=== PATIENT | female | born 1950 | race Hispanic/Latino ===

== ENCOUNTER 2018-03-11 22:14 | Emergency (ER) | payer OTHER ==
--- OUTSIDE RECORDS SUMMARY | 2018-03-11 22:17 | XMS REPORT | Clinical Summary ---
:1950 Author Organization [facility] Address [address] [place] [address] Care Team Providers Name Role Phone Neo Shah MD Primary Care Provider Allergies Active Allergy Reactions Severity Noted Date Comments Influenza A (H1n1) Vac Other (See Comments) 04/02/2017 Fever, flu like 09 (Pf) symptoms Medications Medication Sig Dispensed Refills Start End Date Status Date pantoprazole Take 40 mg by 0 Active (PROTONIX) 40 MG EC mouth daily. tablet atorvastatin Take 20 mg by 0 Active (LIPITOR) 20 MG mouth every tablet evening. Default OP ins calcitriol Take 0.25 mcg by 0 Active (ROCALTROL) 0.25 MCG mouth 3 (three) capsule times a week. Daily on Mon., Wed., Fri. metoprolol tartrate Take 25 mg by 0 Active (LOPRESSOR) 25 mg mouth 2 (two) tablet times a day. cholecalciferol, Take 2,000 Units 0 Active vitamin D3, (VITAMIN by mouth daily. D3) 2,000 unit capsule capsule amLODIPine (NORVASC) Take 10 mg by 0 Active 10 mg tablet mouth daily. In the evening traMADol (ULTRAM) 50 Take 50 mg by 0 Active mg tablet mouth every 6 (six) hours as needed for moderate pain. LEVOCETIRIZINE Take by mouth. 0 Active DIHYDROCHLORIDE (LEVOCETIRIZINE ORAL) amLODIPine (NORVASC) Take 10 mg by 0 04/02/19 Discontinued 10 mg tablet mouth daily. 18 ciprofloxacin Take 500 mg by 0 04/02/19 Discontinued (CIPRO) 500 MG mouth every 12 18 tablet (twelve) hours. For 7 days sennosides-docusate Take 1 tablet by 20 tablet 0 04/10/19 Discontinued sodium (SENOKOT-S) mouth 2 (two) 8 18 8.6-50 mg per tablet times a day as needed for constipation for up to 10 days. dextromethorphan-gua Take 5 mL by 236 mL 1 04/19/19 ifenesin mouth every 4 8 18 (ROBITUSSIN-DM) (four) hours as 10-100 mg/5 mL needed for cough liquid for up to 10 days. amoxicillin-pot Take 1 tablet 10 tablet 0 04/14/19 clavulanate (500 mg total) by 8 18 (AUGMENTIN) 500-125 mouth 2 (two) mg per tablet times a day for 5 days. levoFLOXacin Take 1 tablet 7 tablet 0 04/25/19 Discontinued (LEVAQUIN) 500 MG (500 mg total) by 8 18 tablet mouth daily for 7 days. azelastine (ASTELIN) 1 spray into each 30 mL 3 05/21/19 Discontinued 137 mcg (0.1 %) nostril 2 (two) 8 18 nasal spray times a day for 30 days. Use in each nostril as directed levocetirizine Take 1 tablet (5 30 tablet 3 05/26/19 (XYZAL) 5 MG tablet mg total) by 8 18 mouth every evening for 30 days. levoFLOXacin Take 1 tablet 5 tablet 0 04/30/19 (LEVAQUIN) 750 MG (750 mg total) by 8 18 tablet mouth daily for 5 days. ertapenem 1 g in Infuse 1 g into a 0 06/14/19 sodium chloride 0.9 venous catheter 8 18 % MBP 50 mL IVPB daily for 18 days. Active Problems Problem Noted Date Fever 06/21/2017 Pyelonephritis 05/20/2017 Pneumonia due to infectious organism 04/17/2017 Acquired hydronephrosis 04/02/2017 Hydronephrosis 04/02/2017 Chest pain 11/03/2016 Encounters Date Type Specialty Care Team Description 06/25/2017 Anesthesia Event General Surgery Isabel Mustafa FNP 06/25/2017 Surgery General Surgery Cristofer Velez CYSTOSCOPY, LEFT Bryan III, MD URETEROSCOPY, RETROGRADE PYELOGRAM, BALLOON DILATION OF URETHRAL STRICTURE 06/21/2017 Hospital Encounter General Internal Schneider, Fever, unspecified fever cause (Primary Dx); - Medicine MD Roger Infected central venous catheter, initial encounter; 06/26/2017 Nahid Burt Acquired hydronephrosis due to obstruction of ureteropelvic junction (UPJ); MD Abel Acquired hydronephrosis; Hydronephrosis, unspecified hydronephrosis type 06/21/2017 Pre-Admit Testing Pre-Admission Cristofer Velez Pre-op testing ( Primary Appointment Testing Bryan MENA MD Dx) 05/22/2017 Anesthesia Event General Surgery Felisha Leblanc MD 05/22/2017 Surgery General Surgery Cristofer Velez CYSTO WITH LEFT Bryan MENA MD URETERAL STENT PLACEMENT 05/20/2017 Hospital Encounter General Internal Jinny, Pyelonephritis ( Primary - Medicine Jesus Lee, Dx) 05/25/2017 Edwige Sutherland MD 04/25/2017 Hospital Encounter Radiology Kranthi Kang MD 04/25/2017 Office Visit Pulmonology Kranthi Kang Fever, unspecified fever cause (Primary Dx); MD Jose Pneumonia due to infectious organism, unspecified laterality, unspecified part of lung- resolved 04/17/2017 Office Visit Pulmonology Kranthi Kang Pneumonia due to MD Jose infectious organism, unspecified laterality, unspecified part of lung- resolved (Primary Dx) 04/13/2017 Hospital Encounter Radiology Kranthi Kang Pneumonia due to MD Jose organism 04/12/2017 Orders Only Pulmonology Malka Lerma, Pneumonia due to MA organism (Primary Dx) 04/10/2017 Office Visit General Surgery Brice Payne, Hernia, hiatal ( Primary Dx); Paraesophageal hernia; Gastroesophageal reflux disease, esophagitis presence not specified 04/02/2017 Anesthesia Event General Surgery Hanna Pa, NELI 04/02/2017 Surgery General Surgery Cristofer Velez ROBOTIC ASSISTED LEFT Bryan MENA MD PYELOPLASTY, PLACEMENT OF URETERAL STENT - VERBAL 04/02/2017 Hospital Encounter General Internal Cristofer Velez Acquired hydronephrosis - Medicine Bryan MENA MD 04/09/2017 03/22/2017 Hospital Encounter Radiology Cristofer Velez HydronephrosisBryan III, MD unspecified hydronephrosis type 03/20/2017 Transcribe Orders Access Cristofer Velez HydronephrosisBryan III, MD unspecified hydronephrosis type (Primary Dx) after 03/10/2017 Family History Medical History Relation Name Comments Diabetes Father No Known Problems Mother Relation Name Status Comments Father Mother Social History Tobacco Use Types Packs/Day Years Used Date Never Smoker Smokeless Tobacco: Never Used Alcohol Use Drinks/Week oz/Week Comments No Sex Assigned at Date Recorded Not on file Job Start Date Occupation Industry Not on file Not on file Not on file Travel History Travel Start Travel End No recent travel history available. Last Filed Vital Signs Vital Sign Reading Time Taken Blood Pressure 115/65 06/26/2017 12:36 PM CDT Pulse 68 06/26/2017 12:36 PM CDT Temperature 36.4 C (97.6 F) 06/26/2017 12:36 PM CDT Respiratory Rate 16 06/26/2017 12:36 PM CDT Oxygen Saturation 98% 06/26/2017 12:36 PM CDT Inhaled Oxygen Concentration - - Weight 62 kg (136 lb 11.2 oz) 06/26/2017 3:00 AM CDT Height 154.9 cm (5' 1") 06/21/2017 3:37 PM CDT Body Mass Index 25.83 06/26/2017 3:00 AM CDT Plan of Treatment Health Maintenance Due Date Last Done Comments BREAST CANCER SCREENING 02/07/1998 COLON CANCER SCREENING 02/07/1998 SHINGLES VACCINES (1 of 2) 02/07/1998 PNEUMOCOCCAL POLYSACCHARIDE VACCINE AGE 65 AND OVER 02/07/2013 PNEUMOCOCCAL-13 02/07/2013 INFLUENZA VACCINE 10/17/2017 Implants Implanted Type Area Staff Midwife Device Shelf Model / Identifier Expiration Serial / Date Lot Particle Hmstc Absrbl Yoanna 5gm Mph - [id number] Surgical N/A: [employer] [id number] / Implanted: Qty: 1 on 04/02/2017 by Cristofer Velez III, MD Implants; Abdomen, / Expanders; Lower [id number] Extenders; Quadrant Surgical Wires Stent Uretl Unvrsa Reprcsd 6fr 26cm Hydrphlc [facility] - [id number] Urological Left : N/A [facility] 12/23/2019 [id number] / Implanted: 04/02/2017 (Quantity not on file) Implants or / Sets [id number] Stent Uretl Universa 6fr 24cm Hydrphlc With Gw - [id number] Urological Left: [facility] 04/05/2020 [id number] / Implanted: 05/22/2017 (Quantity not on file) Implants or Ureter, / Sets [place] [id number] Catheter Uretl 4.8fr 70cm Cn-Tp Rtrgd Pyelogram - [id number] Urological N/A: N/A [facility] 03/20/2020 [id number] / Implanted: Implants or / Explanted: 06/25/2017 (Quantity not on file) Sets [id number] Stent Uretl Universa 6fr 24cm Hydrphlc With Gw - [id number] Urological N/A: N /A [facility] 05/04/2020 [id number] / Implanted: Qty: 1 on 06/25/2017 by Cristofer Velez III, MD Implants or / Sets [id number] Explanted Type Area Staff Midwife Device Shelf Model / Identifier Expiration Serial / Date Lot Samantha Ql 2530 Disposable Inflation Device Inflation N/A: [employer] LARYR 10/17/2019 [id number] / Implanted: Device N/A - ENT (FORMERLY / Explanted: 06/25/2017 (Quantity not on file) [facility]) [id number] Stent Uretl Universa 6fr 24cm Hydrphlc With Gw - [id number] Urological Left: [facility] 12/17/2019 [id number] / Implanted: Implants or N/A / Explanted: Qty: 1 on 04/02/2017 Sets [id number] Procedures Procedure Name Priority Date/Time Associated Diagnosis Comments ZZESTIMATED GFR Routine 06/26/2017 4:40 Results for this AM CDT procedure are in the results section. COMPREHENSIVE Routine 06/26/2017 4:40 Results for this METABOLIC PANEL AM CDT procedure are in the results section. HC COMPLETE BLD COUNT Routine 06/26/2017 4:40 Results for this W/AUTO DIFF AM CDT procedure are in the results section. VANCOMYCIN LEVEL, Timed 06/25/2017 7:25 Results for this TROUGH PM CDT procedure are in the results section. OR FL > 1 HOUR Routine 06/25/2017 3:00 Results for this PM CDT procedure are in the results section. URINE CULTURE Timed 06/25/2017 12:58 Results for this PM CDT procedure are in the results section. GRAM STAIN Timed 06/25/2017 12:58 Results for this PM CDT procedure are in the results section. ANAEROBIC CULTURE Timed 06/25/2017 12:58 Acquired Results for this PM CDT hydronephrosis due to procedure are in obstruction of the results ureteropelvic section. junction (UPJ) ZZESTIMATED GFR Routine 06/25/2017 5:40 Results for this AM CDT procedure are in the results section. HC COMPLETE BLD COUNT Routine 06/25/2017 5:40 Results for this W/AUTO DIFF AM CDT procedure are in the results section. COMPREHENSIVE Routine 06/25/2017 5:40 Results for this METABOLIC PANEL AM CDT procedure are in the results section. MAGNESIUM LEVEL Routine 06/25/2017 5:40 Results for this AM CDT procedure are in the results section. PROTHROMBIN TIME WITH Routine 06/25/2017 5:40 Results for this INR AM CDT procedure are in the results section. ZZESTIMATED GFR Routine 06/24/2017 5:35 Results for this AM CDT procedure are in the results section. BASIC METABOLIC PANEL Routine 06/24/2017 5:35 Results for this AM CDT procedure are in the results section. HC COMPLETE BLD COUNT Routine 06/24/2017 5:35 Results for this W/AUTO DIFF AM CDT procedure are in the results section. VANCOMYCIN LEVEL, Timed 06/23/2017 5:45 Results for this TROUGH PM CDT procedure are in the results section. ZZESTIMATED GFR Routine 06/23/2017 5:20 Results for this AM CDT procedure are in the results section. COMPREHENSIVE Routine 06/23/2017 5:20 Results for this METABOLIC PANEL AM CDT procedure are in the results section. HC COMPLETE BLD COUNT Routine 06/23/2017 5:20 Results for this W/AUTO DIFF AM CDT procedure are in the results section. ZZESTIMATED GFR Timed 06/22/2017 5:05 Results for this AM CDT procedure are in the results section. COMPREHENSIVE Timed 06/22/2017 5:05 Results for this METABOLIC PANEL AM CDT procedure are in the results section. HC COMPLETE BLD COUNT Timed 06/22/2017 5:05 Results for this W/AUTO DIFF AM CDT procedure are in the results section. TROPONIN Timed 06/22/2017 5:05 Results for this AM CDT procedure are in the results section. TROPONIN Timed 06/22/2017 12:05 Results for this AM CDT procedure are in the results section. LACTIC ACID LEVEL, Timed 06/22/2017 12:05 Results for this SEPSIS - NOW AND AM CDT procedure are in REPEAT 2X EVERY 3 the results HOURS section. LACTIC ACID LEVEL, Timed 06/21/2017 9:00 Results for this SEPSIS - NOW AND PM CDT procedure are in REPEAT 2X EVERY 3 the results HOURS section. IR TUNNELED CENTRAL STAT 06/21/2017 5:50 Results for this LINE REMOVAL PM CDT procedure are in the results section. ECG 12-LEAD STAT 06/21/2017 5:34 Results for this PM CDT procedure are in the results section. BLOOD CULTURE, AEROBIC Routine 06/21/2017 5:08 Results for this & ANAEROBIC PM CDT procedure are in the results section. ZZESTIMATED GFR STAT 06/21/2017 4:58 Results for this PM CDT procedure are in the results section. COMPREHENSIVE STAT 06/21/2017 4:58 Results for this METABOLIC PANEL PM CDT procedure are in the results section. LACTIC ACID LEVEL, STAT 06/21/2017 4:58 Results for this SEPSIS - NOW AND PM CDT procedure are in REPEAT 2X EVERY 3 the results HOURS section. B NATRIURETIC PEPTIDE STAT 06/21/2017 4:58 Results for this PM CDT procedure are in the results section. LIPASE LEVEL STAT 06/21/2017 4:58 Results for this PM CDT procedure are in the results section. TROPONIN STAT 06/21/2017 4:58 Results for this PM CDT procedure are in the results section. CREATINE KINASE, TOTAL STAT 06/21/2017 4:58 Results for this (CPK) PM CDT procedure are in the results section. PARTIAL THROMBOPLASTIN Routine 06/21/2017 4:58 Results for this TIME (PTT) PM CDT procedure are in the results section. PROTHROMBIN TIME WITH Routine 06/21/2017 4:58 Results for this INR PM CDT procedure are in the results section. HC COMPLETE BLD COUNT Routine 06/21/2017 4:58 Results for this W/AUTO DIFF PM CDT procedure are in the results section. BLOOD CULTURE, AEROBIC Routine 06/21/2017 4:58 Results for this & ANAEROBIC PM CDT procedure are in the results section. XR CHEST 1 VW PORTABLE STAT 06/21/2017 4:51 Results for this PM CDT procedure are in the results section. ECG ED PRELIMINARY Routine 06/21/2017 4:01 Results for this INTERPRETATION PM CDT procedure are in the results section. ZZESTIMATED GFR Routine 06/21/2017 12:51 Results for this PM CDT procedure are in the results section. BASIC METABOLIC PANEL Routine 06/21/2017 12:51 Pre-op testing Results for this PM CDT procedure are in the results section. HC COMPLETE BLD COUNT Routine 06/21/2017 12:51 Pre-op testing Results for this W/AUTO DIFF PM CDT procedure are in the results section. URINALYSIS SCREEN AND Routine 06/21/2017 12:50 Pre-op testing Results for this MICROSCOPY, WITH PM CDT procedure are in REFLEX TO CULTURE the results section. GRAM STAIN Routine 06/21/2017 12:50 Results for this PM CDT procedure are in the results section. URINE CULTURE Routine 06/21/2017 12:50 Results for this PM CDT procedure are in the results section. MANUAL DIFFERENTIAL Routine 05/25/2017 5:15 Results for this AM INTEGRATION ARCHITECT procedure are in the results section. ZZESTIMATED GFR Routine 05/25/2017 5:15 Results for this AM INTEGRATION ARCHITECT procedure are in the results section. BASIC METABOLIC PANEL Routine 05/25/2017 5:15 Results for this AM INTEGRATION ARCHITECT procedure are in the results section. CBC WITH PLATELET AND Routine 05/25/2017 5:15 Results for this DIFFERENTIAL AM INTEGRATION ARCHITECT procedure are in the results section. US GUIDED VASCULAR Routine 05/24/2017 3:15 Results for this ACCESS PM INTEGRATION ARCHITECT procedure are in the results section. IR TUNNELED CENTRAL Routine 05/24/2017 3:15 Results for this LINE PLACEMENT PM INTEGRATION ARCHITECT procedure are in the results section. ZZESTIMATED GFR Routine 05/24/2017 12:00 Results for this PM INTEGRATION ARCHITECT procedure are in the results section. PHOSPHORUS LEVEL Routine 05/24/2017 12:00 Results for this PM INTEGRATION ARCHITECT procedure are in the results section. MAGNESIUM LEVEL Routine 05/24/2017 12:00 Results for this PM INTEGRATION ARCHITECT procedure are in the results section. HC COMPLETE BLD COUNT Routine 05/24/2017 12:00 Results for this W/AUTO DIFF PM INTEGRATION ARCHITECT procedure are in the results section. PROTHROMBIN TIME WITH Routine 05/24/2017 12:00 Results for this INR PM INTEGRATION ARCHITECT procedure are in the results section. COMPREHENSIVE Routine 05/24/2017 12:00 Results for this METABOLIC PANEL PM INTEGRATION ARCHITECT procedure are in the results section. BLOOD CULTURE, AEROBIC Routine 05/23/2017 1:15 Results for this & ANAEROBIC PM INTEGRATION ARCHITECT procedure are in the results section. BLOOD CULTURE, AEROBIC Routine 05/23/2017 1:00 Results for this & ANAEROBIC PM INTEGRATION ARCHITECT procedure are in the results section. MANUAL DIFFERENTIAL Routine 05/23/2017 5:02 Results for this AM INTEGRATION ARCHITECT procedure are in the results section. ZZESTIMATED GFR Routine 05/23/2017 5:02 Results for this AM INTEGRATION ARCHITECT procedure are in the results section. COMPREHENSIVE Routine 05/23/2017 5:02 Results for this METABOLIC PANEL AM INTEGRATION ARCHITECT procedure are in the results section. CBC WITH PLATELET AND Routine 05/23/2017 5:02 Results for this DIFFERENTIAL AM INTEGRATION ARCHITECT procedure are in the results section. CLOSTRIDIUM DIFFICILE Routine 05/22/2017 9:20 Results for this TOXIN PM INTEGRATION ARCHITECT procedure are in the results section. D-DIMER Routine 05/22/2017 2:28 Results for this PM INTEGRATION ARCHITECT procedure are in the results section. SOLUBLE FIBRIN MONOMER Routine 05/22/2017 2:28 Results for this PM INTEGRATION ARCHITECT procedure are in the results section. LDH Routine 05/22/2017 2:28 Results for this PM INTEGRATION ARCHITECT procedure are in the results section. PARTIAL THROMBOPLASTIN Routine 05/22/2017 2:28 Results for this TIME (PTT) PM INTEGRATION ARCHITECT procedure are in the results section. FIBRINOGEN Routine 05/22/2017 2:28 Results for this PM INTEGRATION ARCHITECT procedure are in the results section. OR FL > 1 HOUR Routine 05/22/2017 12:00 Results for this PM INTEGRATION ARCHITECT procedure are in the results section. [place] AN ELECTIVE Routine 05/22/2017 11:41 SUPRAGLOTTIC AIRWAY AM INTEGRATION ARCHITECT Procedure Note - Lorenza Pierce - 05/22/2017 11:41 AM INTEGRATION ARCHITECT Airway Date/Time: 05/22/2017 11:41 AM Performed by: LORENZA PIERCE Authorized by: FELISHA LEBLANC Location: OR Urgency: Elective Anesthesiologist: FELISHA LEBLANC Resident/BOMB TECHNICIAN/AA: LORENZA PIERCE Preoxygenated with 100% O2: Yes C-spine Precautions Maintained Throughout: Yes Mask Ventilation: Easy mask Final Airway Type: Supraglottic airway Final LMA: Classic LMA Size: 4 Number of Attempts at Approach: 1 MANUAL DIFFERENTIAL Routine 05/22/2017 4:05 Results for this AM INTEGRATION ARCHITECT procedure are in the results section. PROTHROMBIN TIME WITH Routine 05/22/2017 4:05 Results for this INR AM INTEGRATION ARCHITECT procedure are in the results section. ZZESTIMATED GFR Routine 05/22/2017 4:05 Results for this AM INTEGRATION ARCHITECT procedure are in the results section. BASIC METABOLIC PANEL Routine 05/22/2017 4:05 Results for this AM INTEGRATION ARCHITECT procedure are in the results section. CBC WITH PLATELET AND Routine 05/22/2017 4:05 Results for this DIFFERENTIAL AM INTEGRATION ARCHITECT procedure are in the results section. ECG PRE/POST OP Routine 05/22/2017 12:33 Results for this AM INTEGRATION ARCHITECT procedure are in the results section. LACTIC ACID LEVEL Routine 05/21/2017 3:31 Results for this PM INTEGRATION ARCHITECT procedure are in the results section. LACTIC ACID LEVEL, Timed 05/21/2017 2:10 Results for this SEPSIS - NOW AND REPEAT AM INTEGRATION ARCHITECT procedure are in 2X EVERY 3 HOURS the results section. MANUAL DIFFERENTIAL Routine 05/21/2017 1:10 Results for this AM INTEGRATION ARCHITECT procedure are in the results section. ZZESTIMATED GFR Routine 05/21/2017 1:10 Results for this AM INTEGRATION ARCHITECT procedure are in the results section. COMPREHENSIVE METABOLIC Routine 05/21/2017 1:10 Results for this PANEL AM INTEGRATION ARCHITECT procedure are in the results section. CBC WITH PLATELET AND Routine 05/21/2017 1:10 Results for this DIFFERENTIAL AM INTEGRATION ARCHITECT procedure are in the results section. LACTIC ACID LEVEL, Timed 05/20/2017 11:35 Results for this SEPSIS - NOW AND REPEAT PM INTEGRATION ARCHITECT procedure are in 2X EVERY 3 HOURS the results section. LACTIC ACID LEVEL, Timed 05/20/2017 8:40 Results for this SEPSIS - NOW AND REPEAT PM INTEGRATION ARCHITECT procedure are in 2X EVERY [address] results section[address] ABDOMEN PELVIS WO STAT 05/20/2017 7:14 Results for this CONTRAST PM INTEGRATION ARCHITECT procedure are in the results section. PROTHROMBIN TIME WITH STAT 05/20/2017 6:10 Results for this INR PM INTEGRATION ARCHITECT procedure are in the results section. PARTIAL THROMBOPLASTIN STAT 05/20/2017 6:10 Results for this TIME (PTT) PM INTEGRATION ARCHITECT procedure are in the results section. URINALYSIS SCREEN AND STAT 05/20/2017 6:10 Results for this MICROSCOPY, WITH REFLEX PM INTEGRATION ARCHITECT procedure are in TO CULTURE the results section. GRAM STAIN STAT 05/20/2017 6:10 Results for this PM INTEGRATION ARCHITECT procedure are in the results section. URINE CULTURE STAT 05/20/2017 6:10 Results for this PM INTEGRATION ARCHITECT procedure are in the results section. XR CHEST 1 VW PORTABLE STAT 05/20/2017 5:44 Results for this PM INTEGRATION ARCHITECT procedure are in the results section. MANUAL DIFFERENTIAL STAT 05/20/2017 5:40 Results for this PM INTEGRATION ARCHITECT procedure are in the results section. ZZESTIMATED GFR STAT 05/20/2017 5:40 Results for this PM INTEGRATION ARCHITECT procedure are in the results section. LIPASE LEVEL STAT 05/20/2017 5:40 Results for this PM INTEGRATION ARCHITECT procedure are in the results section. LACTIC ACID LEVEL, STAT 05/20/2017 5:40 Results for this SEPSIS - NOW AND REPEAT PM INTEGRATION ARCHITECT procedure are in 2X EVERY 3 HOURS the results section. COMPREHENSIVE METABOLIC STAT 05/20/2017 5:40 Results for this PANEL PM INTEGRATION ARCHITECT procedure are in the results section. CBC WITH PLATELET AND STAT 05/20/2017 5:40 Results for this DIFFERENTIAL PM INTEGRATION ARCHITECT procedure are in the results section. BLOOD CULTURE, AEROBIC Routine 05/20/2017 5:40 Results for this & ANAEROBIC PM INTEGRATION ARCHITECT procedure are in the results section. RESPIRATORY PATHOGEN Routine 05/20/2017 5:32 Results for this PANEL PM INTEGRATION ARCHITECT procedure are in the results section. INFLUENZA ANTIGEN Routine 05/20/2017 5:32 Results for this PM INTEGRATION ARCHITECT procedure are in the results section. BLOOD CULTURE, AEROBIC Routine 05/20/2017 5:32 Results for this & ANAEROBIC PM INTEGRATION ARCHITECT procedure are in the results section. ECG ED PRELIMINARY Routine 05/20/2017 5:15 Results for this INTERPRETATION PM INTEGRATION ARCHITECT procedure are in the results section. [place] CRITICAL CARE, E/M Routine 05/20/2017 5:15 Results for this 30-74 MINUTES PM INTEGRATION ARCHITECT procedure are in the results section. ECG 12-LEAD STAT 05/20/2017 5:02 Results for this PM INTEGRATION ARCHITECT procedure are in the results section. XR CHEST 2 VW Routine 04/25/2017 6:31 Pneumonia due to Results for this PM INTEGRATION ARCHITECT infectious procedure are in organism, the results unspecified section. laterality, unspecified part of lung- resolved POCT INFLUENZA A/B Routine 04/25/2017 5:16 Fever, unspecified Results for this PM INTEGRATION ARCHITECT fever cause procedure are in the results section. XR CHEST 2 VW Routine 04/13/2017 9:39 Pneumonia due to Results for this AM INTEGRATION ARCHITECT organism procedure are in the results section. ZZESTIMATED GFR Routine 04/09/2017 4:01 Results for this AM INTEGRATION ARCHITECT procedure are in the results section. BASIC METABOLIC PANEL Routine 04/09/2017 4:01 Results for this AM INTEGRATION ARCHITECT procedure are in the results section. HC COMPLETE BLD COUNT Routine 04/09/2017 4:01 Results for this W/AUTO DIFF AM INTEGRATION ARCHITECT procedure are in the results section. VANCOMYCIN LEVEL, Timed 04/08/2017 2:00 Results for this TROUGH PM INTEGRATION ARCHITECT procedure are in the results section. ZZESTIMATED GFR Routine 04/08/2017 5:00 Results for this AM INTEGRATION ARCHITECT procedure are in the results section. BASIC METABOLIC PANEL Routine 04/08/2017 5:00 Results for this AM INTEGRATION ARCHITECT procedure are in the results section. HC COMPLETE BLD COUNT Routine 04/08/2017 5:00 Results for this W/AUTO DIFF AM INTEGRATION ARCHITECT procedure are in the results section. XR CHEST 1 VW PORTABLE Routine 04/08/2017 4:44 Results for this AM INTEGRATION ARCHITECT procedure are in the results section. GRAM STAIN Routine 04/07/2017 9:00 Results for this PM INTEGRATION ARCHITECT procedure are in the results section. SPUTUM CULTURE Routine 04/07/2017 9:00 Results for this PM INTEGRATION ARCHITECT procedure are in the results section. ZZESTIMATED GFR Routine 04/07/2017 3:30 Results for this AM INTEGRATION ARCHITECT procedure are in the results section. BASIC METABOLIC PANEL Routine 04/07/2017 3:30 Results for this AM INTEGRATION ARCHITECT procedure are in the results section. HC COMPLETE BLD COUNT Routine 04/07/2017 3:30 Results for this W/AUTO DIFF AM INTEGRATION ARCHITECT procedure are in the results section. ZZESTIMATED GFR Routine 04/06/2017 12:30 Results for this PM INTEGRATION ARCHITECT procedure are in the results section. BASIC METABOLIC PANEL Routine 04/06/2017 12:30 Results for this PM INTEGRATION ARCHITECT procedure are in the results section. HC COMPLETE BLD COUNT Routine 04/06/2017 12:30 Results for this W/AUTO DIFF PM INTEGRATION ARCHITECT procedure are in the results section. NM LUNG VENTILATION Routine 04/06/2017 9:43 Results for this PERFUSION AM INTEGRATION ARCHITECT procedure are in the results section. CT CHEST WO CONTRAST Routine 04/06/2017 7:20 Results for this AM INTEGRATION ARCHITECT procedure are in the results section. XR CHEST 1 VW PORTABLE Routine 04/04/2017 9:58 Results for this PM INTEGRATION ARCHITECT procedure are in the results section. SURGICAL PATHOLOGY Routine 04/02/2017 11:21 Results for this REQUEST AM INTEGRATION ARCHITECT procedure are in the results section. [place] AN ELECTIVE Routine 04/02/2017 8:47 ENDOTRACHEAL AIRWAY AM INTEGRATION ARCHITECT Procedure Note - Theodore Santizo MD - 04/02/2017 8:47 AM INTEGRATION ARCHITECT Airway Date/Time: 04/02/2017 8:27 AM Performed by: THEODORE SANTIZO Authorized by: THEODORE SANTIZO Location: OR Urgency: Elective Difficult Airway: No Anesthesiologist: THEODORE SANTIZO Performed by: anesthesiologist Preoxygenated with 100% O2: Yes C-spine Precautions Maintained Throughout: Yes Mask Ventilation: Easy mask Final Airway Type: Endotracheal airway Final Endotracheal Airway: ETT Cuffed: Yes Technique Used: Direct laryngoscopy Insertion Site: Oral Blade Type: Monica Laryngoscope Blade/Videolaryngoscope Blade Size: 3 ETT Size (mm): 7.0 Cuff at minimum occlusion pressure: Yes Measured from: Lips ETT to Lips (cm): 21 Placement Verified by: CO2 detection and direct visualization Laryngoscopic view: Grade I - full view of glottis Rapid Sequence Induction (RSI): No Modified RSI: No Number of Attempts at Approach: 1 URINALYSIS SCREEN Timed 04/02/2017 8:35 Acquired Results for this AND MICROSCOPY, WITH AM INTEGRATION ARCHITECT hydronephrosis procedure are in REFLEX TO CULTURE the results section. GRAM STAIN Timed 04/02/2017 8:35 Results for this AM INTEGRATION ARCHITECT procedure are in the results section. URINE CULTURE Timed 04/02/2017 8:35 Results for this AM INTEGRATION ARCHITECT procedure are in the results section. POC GLUCOSE Routine 04/02/2017 7:07 Results for this AM INTEGRATION ARCHITECT procedure are in the results section. ZZESTIMATED GFR STAT 04/02/2017 6:42 Results for this AM INTEGRATION ARCHITECT procedure are in the results section. TYPE AND SCREEN STAT 04/02/2017 6:42 Results for this AM INTEGRATION ARCHITECT procedure are in the results section. BASIC METABOLIC STAT 04/02/2017 6:42 Results for this PANEL AM INTEGRATION ARCHITECT procedure are in the results section. HC COMPLETE BLD STAT 04/02/2017 6:42 Results for this COUNT W/AUTO DIFF AM INTEGRATION ARCHITECT procedure are in the results section. CT ABDOMEN PELVIS WO Routine 03/22/2017 4:25 Hydronephrosis, Results for this CONTRAST PM INTEGRATION ARCHITECT unspecified procedure are in hydronephrosis type the results section. after 03/10/2017 Results Estimated GFR (06/26/2017 4:40 AM CDT)Only the most recent of18 resultswithin the time period is included. GFR Non Af Amer 28 (A) mL/min/1.73 m2 [facility] DEPARTMENT OF PATHOLOGY AND GENOMIC MEDICINE GFR Af Amer 34 (A) mL/min/1.73 m2 [facility] DEPARTMENT OF Comment: PATHOLOGY AND GENOMIC Chronic kidney disease: <60 mL/min/1.73m2 MEDICINE Kidney failure: <15 mL/min/1.73m2 The estimated GFR is calculated from the IDMS-traceable Modification of Diet in Renal Disease Equation. The accuracy of the calculation is poor when the creatinine is normal. Calculated values >90 mL/min/1.73m2 are not reported. This equation has not been validated in children (<18 years), women, the elderly (>70 years), or ethnic groups other than Caucasians and Americans. Specimen Plasma specimen Performing Organization Address City/State/Zipcode Phone Number [facility] DEPARTMENT OF PATHOLOGY [address] [place] [address] AND [employer] MEDICINE CBC with platelet and differential (06/26/2017 4:40 AM CDT)Only the most recent of18 resultswithin the time period is included. WBC 5.9 4.5 - 11.0 k/uL [facility] DEPARTMENT OF PATHOLOGY AND GENOMIC MEDICINE RBC 3.99 (L) 4.20 - 5.50 m/uL [facility] DEPARTMENT OF PATHOLOGY AND GENOMIC MEDICINE HGB 10.7 (L) 12.0 - 16.0 g/dL [facility] DEPARTMENT OF PATHOLOGY AND GENOMIC MEDICINE HCT 34.1 (L) 37.0 - 47.0 % [facility] DEPARTMENT OF PATHOLOGY AND GENOMIC MEDICINE MCV 85.5 82.0 - 100.0 fL [facility] DEPARTMENT OF PATHOLOGY AND GENOMIC MEDICINE MCH 26.8 (L) 27.0 - 34.0 pg [facility] DEPARTMENT OF PATHOLOGY AND GENOMIC MEDICINE MCHC 31.4 31.0 - 37.0 g/dL [facility] DEPARTMENT OF PATHOLOGY AND GENOMIC MEDICINE RDW - SD 48.5 37.0 - 55.0 fL [facility] DEPARTMENT OF PATHOLOGY AND GENOMIC MEDICINE MPV 10.1 6.9 - 11.0 fL [facility] DEPARTMENT OF PATHOLOGY AND GENOMIC MEDICINE Platelet count 181 150 - 400 K/uL [facility] DEPARTMENT OF PATHOLOGY AND GENOMIC MEDICINE Nucleated RBC 0.00 /100 WBC [facility] DEPARTMENT OF PATHOLOGY AND GENOMIC MEDICINE Neutrophils 35.3 (L) 39.0 - 69.0 % [facility] DEPARTMENT OF PATHOLOGY AND GENOMIC MEDICINE Lymphocytes 45.1 (H) 25.0 - 45.0 % [facility] DEPARTMENT OF PATHOLOGY AND GENOMIC MEDICINE Monocytes 13.3 (H) 0.0 - 10.0 % [facility] DEPARTMENT OF PATHOLOGY AND GENOMIC MEDICINE Eosinophils 5.1 (H) 0.0 - 5.0 % [facility] DEPARTMENT OF PATHOLOGY AND GENOMIC MEDICINE Basophils 0.9 0.0 - 1.0 % [facility] DEPARTMENT OF PATHOLOGY AND GENOMIC MEDICINE Immature granulocytes 0.3 0.0 - 1.0 % [facility] DEPARTMENT OF PATHOLOGY AND GENOMIC MEDICINE Specimen Blood Performing Organization Address City/State/Zipcode Phone Number [facility] DEPARTMENT OF PATHOLOGY [address] [place] [address] AND [employer] MEDICINE Comprehensive metabolic panel (06/26/2017 4:40 AM CDT)Only the most recent of9 resultswithin the time period is included. Sodium 140 135 - 148 mEq/L [facility] DEPARTMENT OF PATHOLOGY AND GENOMIC MEDICINE Potassium 4.9 3.5 - 5.0 mEq/L [facility] DEPARTMENT OF PATHOLOGY AND GENOMIC MEDICINE Chloride 104 98 - 112 mEq/L [facility] DEPARTMENT OF PATHOLOGY AND GENOMIC MEDICINE CO2 25 24 - 31 mEq/L [facility] DEPARTMENT OF PATHOLOGY AND GENOMIC MEDICINE Anion gap 11 7 - 15 mEq/L [facility] DEPARTMENT OF Comment: PATHOLOGY AND GENOMIC Starting from June , anion gap calculation MEDICINE no longer incorporates potassium. Please note the change. BUN 24 (H) 8 - 23 mg/dL [facility] DEPARTMENT OF PATHOLOGY AND GENOMIC MEDICINE Creatinine 1.8 (H) 0.5 - 0.9 mg/dL [facility] DEPARTMENT OF PATHOLOGY AND GENOMIC MEDICINE Glucose 92 65 - 99 mg/dL [facility] DEPARTMENT OF PATHOLOGY AND GENOMIC MEDICINE Calcium 8.9 8.8 - 10.2 mg/dL [facility] DEPARTMENT OF PATHOLOGY AND GENOMIC MEDICINE Protein 6.8 6.3 - 8.3 g/dL [facility] DEPARTMENT OF PATHOLOGY AND GENOMIC MEDICINE Albumin 3.5 3.5 - 5.0 g/dL [facility] DEPARTMENT OF PATHOLOGY AND GENOMIC MEDICINE A/G ratio 1.1 0.7 - 3.8 [facility] DEPARTMENT OF PATHOLOGY AND GENOMIC MEDICINE Alkaline phosphatase 100 35 - 104 U/L [facility] DEPARTMENT OF PATHOLOGY AND GENOMIC MEDICINE AST 41 (H) 10 - 35 U/L [facility] DEPARTMENT OF PATHOLOGY AND GENOMIC MEDICINE ALT 27 5 - 50 U/L [facility] DEPARTMENT OF PATHOLOGY AND GENOMIC MEDICINE Total bilirubin <0.2 0.2 - 1.2 mg/dL [facility] DEPARTMENT OF PATHOLOGY AND GENOMIC MEDICINE Specimen Plasma specimen Performing Organization Address City/[facility]/Zipcode Phone Number [facility] DEPARTMENT OF PATHOLOGY [phone] [place] [address] AND [employer] [facility] Vancomycin level, trough (06/25/2017 7:25 PM CDT)Only the most recent of3 resultswithin the time period is included. Vancomycin, trough 16.5 10.0 - 20.0 ug/mL [facility] DEPARTMENT OF Comment: PATHOLOGY AND GENOMIC Therapeutic Ranges: MEDICINE Peak30.0 - 40.0 ug/mL Eckmjr26.0 - 20.0 ug/mL Specimen Blood Performing Organization Address [facility] Servicescode Phone Number [facility] DEPARTMENT OF PATHOLOGY [id number] [place] [phone] AND [employer] MEDICINE [place] > I Hour (06/25/2017 3:00 PM CDT)Only the most recent of2 resultswithin the time period is included. Narrative Performed At EXAMINATION:[place] 1 HOUR [facility] CLINICAL HISTORY: IMPRESSION: Fluoroscopy was provided. No radiologist present.Please see procedure report for discussion of procedure, findings and fluoroscopic time. [facility]-[id number] Procedure Note Interface, Radiology Results Incoming - 06/25/2017 3:32 PM CDT EXAMINATION: [place] 1 HOUR CLINICAL HISTORY: IMPRESSION: Fluoroscopy was provided. No radiologist present. Please see procedure report for discussion of procedure, findings and fluoroscopic time. [facility]-[id number] Performing Organization Address City/[facility]/Zipcode Phone Number [facility] [address] [place] [address] Gram stain (06/25/2017 12:58 PM CDT)Only the most recent of5 resultswithin the time period is included. Gram stain isolate Many WBC's [facility] DEPARTMENT OF PATHOLOGY No organisms seen AND [employer] [facility] Comment: Specimen Information Specimen Source: Urine Specimen Site: Kidney, left Specimen Urine - Kidney, left Performing Organization Address City/State/Zipcode Phone Number [facility] DEPARTMENT OF PATHOLOGY AND [address] [place] [address] [facility] Urine culture (06/25/2017 12:58 PM CDT)Only the most recent of4 resultswithin the time period is included. Urine culture isolate No growth after 2 days. [facility] DEPARTMENT OF Comment: PATHOLOGY AND GENOMIC Specimen Information MEDICINE Specimen Source: Urine Specimen Site: Kidney, left Specimen Urine - Kidney, left Performing Organization Address City/State/[facility] Servicescode Phone Number [facility] DEPARTMENT OF PATHOLOGY AND [address] [place] [phone] [facility] Anaerobic culture (06/25/2017 12:58 PM CDT) Anaerobic culture No anaerobic organisms isolated. (A) [facility] DEPARTMENT OF isolate Comment: PATHOLOGY AND GENOMIC Specimen Information MEDICINE Specimen Source: Urine Specimen Site: Kidney, left Anaerobic culture Kimberly glabrata (A) [facility] DEPARTMENT OF isolate PATHOLOGY AND GENOMIC MEDICINE Specimen Urine - Kidney, left Organism Antibiotic Method Susceptibility Kimberly glabrata Micafungin BP 0.016 mcg/mL: Susceptible Kimberly glabrata Amphotericin B BP 2 mcg/mL: Resistant Kimberly glabrata Posiconazole BP 2 mcg/mL Kimberly glabrata Itraconazole BP 1.0 mcg/mL: Resistant Kimberly glabrata Fluconazole BP 16 mcg/mL: Susceptible Performing Organization Address City/[facility] Servicescode Phone Number [facility] DEPARTMENT OF PATHOLOGY AND [address] [place] [phone] [facility] Prothrombin time with INR (06/25/2017 5:40 AM CDT)Only the most recent of5 resultswithin the time period is included. Prothrombin time 13.2 12.0 - 15.0 sec [facility] DEPARTMENT OF PATHOLOGY AND GENOMIC MEDICINE INR 1.0 [facility] DEPARTMENT OF Comment: PATHOLOGY AND GENOMIC The International Normalized Ratio (INR) is a therapeutic MEDICINE monitoring tool for patients who are stable on oral anticoagulant therapy. An INR of 2.0-3.0 is suggested for deep vein thrombosis/pulmonary embolism. Specimen Blood Performing Organization Address City/State/Zipcode Phone Number [facility] DEPARTMENT OF PATHOLOGY [address] [place] [address] AND GENOMIC [facility] Magnesium level (06/25/2017 5:40 AM CDT)Only the most recent of2 resultswithin the time period is included. Magnesium 2.0 1.6 - 2.4 mg/dL [facility] DEPARTMENT OF PATHOLOGY AND GENOMIC MEDICINE Specimen Plasma specimen Performing Organization Address City/State/Zipcode Phone Number [facility] DEPARTMENT OF PATHOLOGY [address] [place] [address]. [place] [address] AND [employer] [facility] Basic metabolic panel (06/24/2017 5:35 AM CDT)Only the most recent of9 resultswithin the time period is included. Sodium 140 135 - 148 mEq/L [facility] DEPARTMENT OF PATHOLOGY AND GENOMIC [facility] Potassium 4.5 3.5 - 5.0 mEq/L [facility] DEPARTMENT OF PATHOLOGY AND GENOMIC MEDICINE Chloride 104 98 - 112 mEq/L [facility] DEPARTMENT OF PATHOLOGY AND GENOMIC MEDICINE CO2 23 (L) 24 - 31 mEq/L [facility] DEPARTMENT OF PATHOLOGY AND [employer] [facility] Anion gap 13 7 - 15 mEq/L [facility] DEPARTMENT OF Comment: PATHOLOGY AND GENOMIC Starting from June , anion gap calculation MEDICINE no longer incorporates potassium. Please note the change. BUN 25 (H) 8 - 23 mg/dL [facility] DEPARTMENT OF PATHOLOGY AND GENOMIC MEDICINE Creatinine 1.8 (H) 0.5 - 0.9 mg/dL [facility] DEPARTMENT OF PATHOLOGY AND GENOMIC MEDICINE Glucose 94 65 - 99 mg/dL [facility] DEPARTMENT OF PATHOLOGY AND GENOMIC MEDICINE Calcium 9.2 8.8 - 10.2 mg/dL [facility] DEPARTMENT OF PATHOLOGY AND [employer] [facility] Specimen Plasma specimen Performing Organization Address City/[facility] Servicescode Phone Number [facility] DEPARTMENT OF PATHOLOGY [address] [place] [address]. [place] [address] AND [employer] [facility] Troponin (06/22/2017 5:05 AM CDT)Only the most recent of3 resultswithin the time period is included. Troponin <0.30 0.00 - 0.30 ng/mL [facility] DEPARTMENT OF PATHOLOGY Comment: AND [employer] MEDICINE 0.11 - 1.49 ng/mlMay indicate increased risk of acute coronary syndrome. >=1.5 ng/mlConsistent with acute myocardial infarction. The diagnostic value of a single normal or non-diagnostic result is questionable.Serial samples at 2-6 hour intervals are required to rule out acute myocardial injury. Specimen Plasma specimen Performing Organization Address City/State/Zipcode Phone Number [facility] DEPARTMENT OF PATHOLOGY [address] [place] [address]. [place] [address] AND [facility] Lactic acid level, SEPSIS - Now and repeat 2x every 3 hours (06/22/2017 12:05 AM CDT)Only the most recent of7 resultswithin the time period is included. Lactic acid 1.3 0.5 - 2.2 mmol/L [facility] DEPARTMENT OF PATHOLOGY AND GENOMIC MEDICINE Specimen Plasma specimen Performing Organization Address City/State/Zipcode Phone Number [facility] DEPARTMENT OF PATHOLOGY [address] [facility] [place] [address] AND GENOMIC MEDICINE IR Tunneled Central Line Removal (06/21/2017 5:50 PM CDT) Narrative Performed At PERFORMING RADIOLOGIST: LEVAR Glover MD ASSISTANTS: None ANESTHESIA TYPE: 1% buffered lidocaine used for local anesthetic. PRE PROCEDURE DIAGNOSIS: History of right internal jugular approach tunneled central venous catheter. Long-term antibiotics. Now status post antibiotic treatment. Catheter no longer needed. POST PROCEDURE DIAGNOSIS: Status post right chest tunneled central venous catheter removal. PROCEDURE: Right chest tunneled central venous catheter removal. TECHNIQUE: Written informed consent was obtained prior to the procedure. The procedure was performed at the bedside in the PACU. The right chest and tunneled central venous catheter were sterilely prepared and draped in the routine manner. The suture securing the tunneled central venous catheter were then cut. Using gentle traction, the cuff of the indwelling tunneled central venous catheter was freed, and this catheter was removed. Hemostasis was achieved with manual compression. The patient tolerated the procedure well. RADIATION DOSE: None. COMPLICATIONS None . SPECIMENS REMOVED: As described above. ESTIMATED BLOOD LOSS: Less then 1 mL BLOOD PRODUCTS ADMINISTERED: None. GRAFTS/IMPLANTS: None. IMPRESSION: Successful removal of the right chest tunneled central venous catheter. [facility]-[id number] Procedure Note Interface, Radiology Results Incoming - 06/21/2017 6:06 PM CDT PERFORMING RADIOLOGIST: Esther Glover MD ASSISTANTS: None ANESTHESIA TYPE: 1% buffered lidocaine used for local anesthetic. PRE PROCEDURE DIAGNOSIS: History of right internal jugular approach tunneled central venous catheter. Long-term antibiotics. Now status post antibiotic treatment. Catheter no longer needed. POST PROCEDURE DIAGNOSIS: Status post right chest tunneled central venous catheter removal. PROCEDURE: Right chest tunneled central venous catheter removal. TECHNIQUE: Written informed consent was obtained prior to the procedure. The procedure was performed at the bedside in the PACU. The right chest and tunneled central venous catheter were sterilely prepared and draped in the routine manner. The suture securing the tunneled central venous catheter were then cut. Using gentle traction, the cuff of the indwelling tunneled central venous catheter was freed, and this catheter was removed. Hemostasis was achieved with manual compression. The patient tolerated the procedure well. RADIATION DOSE: None. COMPLICATIONS None . SPECIMENS REMOVED: As described above. ESTIMATED BLOOD LOSS: Less then 1 mL BLOOD PRODUCTS ADMINISTERED: None. GRAFTS/IMPLANTS: None. IMPRESSION: Successful removal of the right chest tunneled central venous catheter. [facility]-[id number] Performing Organization Address [facility] Servicescoks Phone Number [facility] [address] [place] [address] ECG 12 lead (06/21/2017 5:34 PM CDT)Only the most recent of2 resultswithin the time period is included. Ventricular rate 88 [facility] MUSE Atrial rate 88 [facility] MUSE [place] interval 148 [facility] MUSE QRSD interval 84 [facility] MUSE QT interval 374 [facility] MUSE QTC interval 452 [facility] MUSE P axis 1 39 [facility] MUSE QRS axis 1 -19 [facility] MUSE T wave axis 24 [facility] MUSE EKG impression Normal sinus rhythm-No previous ECGs [facility] MUSE available- Performing Organization Address [facility] Phone Number [facility] MUSE [address] [place] [address] Blood culture, aerobic & anaerobic (06/21/2017 5:08 PM CDT)Only the most recent of6 resultswithin the time period is included. Blood culture isolate No growth after 5 days of incubation. [facility] DEPARTMENT OF Comment: PATHOLOGY AND GENOMIC Specimen Information MEDICINE Specimen Source: Blood Specimen Site: Line, central, right Specimen Blood - Line, central, right Performing Organization Address [facility] Phone Number [facility] DEPARTMENT OF PATHOLOGY AND [address] [place] [phone] GENOMIC MEDICINE Partial thromboplastin time, activated (06/21/2017 4:58 PM CDT)Only the most recent of3 resultswithin the time period is included. PTT 29.2 23.0 - 36.0 sec [facility] DEPARTMENT OF Comment: PATHOLOGY AND GENOMIC PTT therapeutic range for unfractionated heparin is MEDICINE 61.0-112.0 seconds which corresponds to Anti-Xa 0.3-0.7 U/ml. Specimen Blood Performing Organization Address City/[facility]/Zipcode Phone Number [facility] DEPARTMENT OF PATHOLOGY [address] [place] [address]. [place] [address] AND [facility] B natriuretic peptide (06/21/2017 4:58 PM CDT) BNP 45 0 - 100 pg/mL [facility] DEPARTMENT OF PATHOLOGY AND [facility] Specimen Blood Performing Organization Address City/[facility] Servicescode Phone Number [facility] DEPARTMENT OF PATHOLOGY [address] [place] [address]. [place] [address] AND [facility] Lipase level (06/21/2017 4:58 PM CDT)Only the most recent of2 resultswithin the time period is included. Lipase 53 13 - 60 U/L [facility] DEPARTMENT OF PATHOLOGY AND [facility] Specimen Plasma specimen Performing Organization Address [facility] Servicescode Phone Number [facility] DEPARTMENT OF PATHOLOGY [address] [place] [address]. [place] [address] AND [facility] Creatine kinase, total (CPK) (06/21/2017 4:58 PM CDT) Creatine kinase 71 26 - 192 U/L [facility] DEPARTMENT OF PATHOLOGY AND GENOMIC MEDICINE Specimen Plasma specimen Performing Organization Address City/[facility] Services[facility] Phone Number [facility] DEPARTMENT OF PATHOLOGY [address] [place] [address]. [place] [address] AND [facility] XR Chest 1 Vw Portable (06/21/2017 4:51 PM CDT)Only the most recent of4 resultswithin the time period is included. Narrative Performed At Examination: XR CHEST 1 VW PORTABLE [facility] Clinical history: fever Comparison: May 20 Impression: 1. Central line tip is in the SVC. There is no visible pneumothorax. 2. Appearance of the chest is otherwise stable. The cardiac silhouette is mildly enlarged. Vasculature is borderline. Large gas containing hiatal hernia is unchanged. 3. There is no confluent infiltrate or effusion. 4. There is no acute osseous pathology. [facility]-[id number] Procedure Note Hm Interface, Radiology Results Incoming - 06/21/2017 4:57 PM CDT Examination: XR CHEST 1 VW PORTABLE Clinical history: fever Comparison: May 20 Impression: 1. Central line tip is in the SVC. There is no visible pneumothorax. 2. Appearance of the chest is otherwise stable. The cardiac silhouette is mildly enlarged. Vasculature is borderline. Large gas containing hiatal hernia is unchanged. 3. There is no confluent infiltrate or effusion. 4. There is no acute osseous pathology. [facility]-[id number] Performing Organization Address City/State/Zipcode Phone Number LEV[facility] NOLASCO [address] [place] [address] ECG ED Preliminary Interpretation - NOT AN ORDER (06/21/2017 4:01 PM CDT)Only the most recent of2 resultswithin the time period is included. Narrative Performed At Roger Schneider MD 06/21/2017 11:00 PM ECG ED Preliminary Interpretation - Not an Order Performed by: ROGER SCHNEIDER Authorized by: ROGER SCHNEIDER ECG reviewed by ED Physician in the absence of a elevator technician: yes Previous ECG: Previous ECG:Unavailable Interpretation: Interpretation: normal Rate: ECG rate:88 ECG rate assessment: normal Rhythm: Rhythm: sinus rhythm Ectopy: Ectopy: none QRS: QRS axis:Normal QRS intervals:Normal Conduction: Conduction: normal ST segments: ST segments:Non-specific T waves: T waves: non-specific Comments: Sinus rhythm, nonspecific ST-T changes, acute ischemic changes Urinalysis screen and microscopy, with reflex to culture (06/21/2017 12:50 PM CDT)Only the most recent of3 resultswithin the time period is included. Specimen site Clean catch [facility] DEPARTMENT OF PATHOLOGY AND GENOMIC MEDICINE Color, UA Yellow [facility] DEPARTMENT OF PATHOLOGY AND GENOMIC MEDICINE Appearance, UA Cloudy [facility] DEPARTMENT OF PATHOLOGY AND GENOMIC MEDICINE Specific gravity, UA 1.011 1.001 - 1.030 [facility] DEPARTMENT OF PATHOLOGY AND GENOMIC MEDICINE pH, UA 5.0 5.0 - 9.0 [facility] DEPARTMENT OF PATHOLOGY AND GENOMIC MEDICINE Protein, UA 2+ (A) Negative [facility] DEPARTMENT OF PATHOLOGY AND GENOMIC MEDICINE Glucose, UA Negative Negative [facility] DEPARTMENT OF PATHOLOGY AND GENOMIC MEDICINE Ketones, UA Negative Negative [facility] DEPARTMENT OF PATHOLOGY AND GENOMIC MEDICINE Bilirubin, UA Negative Negative [facility] DEPARTMENT OF PATHOLOGY AND GENOMIC MEDICINE Blood, UA Small (A) Negative [facility] DEPARTMENT OF PATHOLOGY AND GENOMIC MEDICINE Nitrite, UA Negative Negative [facility] DEPARTMENT OF PATHOLOGY AND GENOMIC MEDICINE Urobilinogen, UA <2.0 <2.0 E.U./dL [facility] DEPARTMENT OF PATHOLOGY AND GENOMIC MEDICINE Leukocyte esterase, UA Large (A) Negative [facility] DEPARTMENT OF PATHOLOGY AND GENOMIC MEDICINE Epithelial cells, UA 1 /HPF [facility] DEPARTMENT OF PATHOLOGY AND GENOMIC MEDICINE Round epithelial cells, UA 2 0 - 5 /HPF [facility] DEPARTMENT OF PATHOLOGY AND GENOMIC MEDICINE WBC, UA >200 (H) 0 - 4 /HPF [facility] DEPARTMENT OF PATHOLOGY AND GENOMIC MEDICINE RBC, UA 32 (H) 0 - 5 /HPF [facility] DEPARTMENT OF PATHOLOGY AND GENOMIC MEDICINE Bacteria, UA Few None seen [facility] DEPARTMENT OF PATHOLOGY AND GENOMIC MEDICINE WBC clumps, UA Many (A) [facility] DEPARTMENT OF PATHOLOGY AND GENOMIC MEDICINE Yeast, UA Few (A) [facility] DEPARTMENT OF PATHOLOGY AND GENOMIC MEDICINE Yeast with pseudohyphae, UA None seen [facility] DEPARTMENT OF PATHOLOGY AND GENOMIC MEDICINE Specimen Urine Performing Organization Address City/[facility] Phone Number [facility] DEPARTMENT OF PATHOLOGY [address] [place] [address] AND [facility] Manual differential (05/25/2017 5:15 AM INTEGRATION ARCHITECT)Only the most recent of5 resultswithin the time period is included. Manual differential PERFORMED [facility] DEPARTMENT OF PATHOLOGY AND GENOMIC MEDICINE Neutrophils 46.0 39.0 - 69.0 % [facility] DEPARTMENT OF PATHOLOGY AND GENOMIC MEDICINE Lymphocytes 40.0 25.0 - 45.0 % [facility] DEPARTMENT OF PATHOLOGY AND GENOMIC MEDICINE Monocytes 6.0 0.0 - 10.0 % [facility] DEPARTMENT OF PATHOLOGY AND GENOMIC MEDICINE Eosinophils 6.0 (H) 0.0 - 5.0 % [facility] DEPARTMENT OF PATHOLOGY AND GENOMIC MEDICINE Basophils 2.0 (H) 0.0 - 1.0 % [facility] DEPARTMENT OF PATHOLOGY AND GENOMIC MEDICINE Platelet slide review Zac adequate [facility] DEPARTMENT OF PATHOLOGY AND GENOMIC MEDICINE Performing Organization Address City/[facility] Services[facility] Phone Number [facility] DEPARTMENT OF PATHOLOGY [address] [place] [address] AND [facility] IR Tunneled Central Line Placement (05/24/2017 3:15 PM INTEGRATION ARCHITECT) Narrative Performed At EXAMINATION:IR TUNNELED CENTRAL LINE PLACEMENT, US GUIDED VASCULAR [facility] ACCESS CLINICAL HISTORY:PYELONEPHRITISCOMPLICATED (DMIMMUNODIFFHX OF STONESPRIOR SURGERYNOT RESPONDING TO ABX) COMPARISON:None. PROCEDURE: Tunneled central venous catheter placement Performing Radiologist: Jonathan Park MD Assistants: None Pre Procedure Diagnosis: PYELONEPHRITISCOMPLICATED (DMIMMUNODIFFHX OF STONESPRIOR SURGERYNOT RESPONDING TO ABX) Post Procedure Diagnosis: PYELONEPHRITISCOMPLICATED (DMIMMUNODIFFHX OF STONESPRIOR SURGERYNOT RESPONDING TO ABX) Indication: IV access for fluids/medication/blood draws Complications: No immediate post procedure complications. IMPRESSION: 1.Technically successful fluoroscopic insertion of a duallumen power injectable tunneled central venous catheter. 2.The right internal jugular vein is patent and compressible on preprocedure ultrasound. PLAN: The tunneled central venous catheter is ready for immediate use. PROCEDURE SUMMARY: 1.Venous access with ultrasound guidance 2.Tunneled central venous catheter placement under fluoroscopic guidance PROCEDURE DETAILS: Pre-procedure: Comparison studies: None Written and informed consent for the procedure and monitored conscious sedation was obtained from the patient. Prophylactic antibiotics: None Preparation: The right anterior chest wall and neck was prepared and draped using all elements of maximal sterile barrier technique including sterile gloves, sterile gown, catheter, mask, large sterile sheet, sterile ultrasound probe cover, hand hygiene and cutaneous antisepsis using chlorhexidine. Anesthesia/Sedation: Level of anesthesia: Moderate Sedation Medications used: Fentanyl and Versed, 1% lidocaine and lidocaine with epinephrine Anesthesia administration: Pulse oximetry, heart rate, and blood pressure were continuously monitored by a radiology nurse and the performing provider. Duration of intraservice [id number] anesthesia/sedation: 12 minutes Access: Local anesthesia was administered. The vein was evaluated with preprocedure ultrasound and noted to be patent. Real-time ultrasound was used to visualize needle entry into the vessel and a permanent image was stored.A 0.035 inch J-wire was advanced into the inferior vena cava and an image was archived. Vein accessed: Right internal jugular vein Access technique: 5 Bangladeshi micropuncture set Venography: Vein catheterized: N/A Indication for venography: Not performed Findings: N/A Central venous catheter placement: An incision was made over the chest wall, and the catheter was tunneled subcutaneously to the venous access site and trimmed to the appropriate length. The catheter was advanced via a peel-away sheath into the vein under fluoroscopic guidance. The catheter tip location was fluoroscopically verified and an image was archived. Catheter Brand/Type: Powerline (Bard) Catheter size: 6 Bangladeshi Catheter Tip Location: Atriocaval junction Catheter flush: None Closure: The neck access site was closed and the catheter was secured to the subcutaneous tissues. A sterile bandage was applied. Hemostasis was achieved with manual compression. Access site closure technique: Dermabond Catheter securement technique: 2-0 silk Contrast: Contrast agent: None Contrast volume: N/A Radiation dose: Total Fluoroscopic dose: Reference air Kerma 27.7 mGy. Additional details: Additional description of procedure: N/A Additional findings: N/A Equipment details: N/A Estimated blood loss: Less than 10 cc [id number] Procedure Note Hm Interface, Radiology Results Incoming - 05/24/2017 3:54 PM INTEGRATION ARCHITECT EXAMINATION: IR TUNNELED CENTRAL LINE PLACEMENT, US GUIDED VASCULAR ACCESS CLINICAL HISTORY: PYELONEPHRITIS COMPLICATED (DM IMMUNODIFF HX OF STONES PRIOR SURGERY NOT RESPONDING TO ABX) COMPARISON: None. PROCEDURE: Tunneled central venous catheter placement Performing Radiologist: Jonathan Park MD Assistants: None Pre Procedure Diagnosis: PYELONEPHRITIS COMPLICATED (DM IMMUNODIFF HX OF STONES PRIOR SURGERY NOT RESPONDING TO ABX) Post Procedure Diagnosis: PYELONEPHRITIS COMPLICATED (DM IMMUNODIFF HX OF STONES PRIOR SURGERY NOT RESPONDING TO ABX) Indication: IV access for fluids/medication/blood draws Complications: No immediate post procedure complications. IMPRESSION: 1. Technically successful fluoroscopic insertion of a dual lumen power injectable tunneled central venous catheter. 2. The right internal jugular vein is patent and compressible on preprocedure ultrasound. PLAN: The tunneled central venous catheter is ready for immediate use. PROCEDURE SUMMARY: 1. Venous access with ultrasound guidance 2. Tunneled central venous catheter placement under fluoroscopic guidance PROCEDURE DETAILS: Pre-procedure: Comparison studies: None Written and informed consent for the procedure and monitored conscious sedation was obtained from the patient. Prophylactic antibiotics: None Preparation: The right anterior chest wall and neck was prepared and draped using all elements of maximal sterile barrier technique including sterile gloves , sterile gown, catheter, mask, large sterile sheet, sterile ultrasound probe cover, hand hygiene and cutaneous antisepsis using chlorhexidine. Anesthesia/Sedation: Level of anesthesia: Moderate Sedation Medications used: Fentanyl and Versed, 1% lidocaine and lidocaine with epinephrine Anesthesia administration: Pulse oximetry, heart rate, and blood pressure were continuously monitored by a radiology nurse and the performing provider. Duration of intraservice [id number] anesthesia/sedation: 12 minutes Access: Local anesthesia was administered. The vein was evaluated with preprocedure ultrasound and noted to be patent. Real-time ultrasound was used to visualize needle entry into the vessel and a permanent image was stored. A 0.035 inch J-wire was advanced into the inferior vena cava and an image was archived. Vein accessed: Right internal jugular vein Access technique: 5 Bangladeshi micropuncture set Venography: Vein catheterized: N/A Indication for venography: Not performed Findings: N/A Central venous catheter placement: An incision was made over the chest wall, and the catheter was tunneled subcutaneously to the venous access site and trimmed to the appropriate length. The catheter was advanced via a peel-away sheath into the vein under fluoroscopic guidance. The catheter tip location was fluoroscopically verified and an image was archived. Catheter Brand/Type: Powerline (IdentiGEN) Catheter size: 6 Bangladeshi Catheter Tip Location: Atriocaval junction Catheter flush: None Closure: The neck access site was closed and the catheter was secured to the subcutaneous tissues. A sterile bandage was applied. Hemostasis was achieved with manual compression. Access site closure technique: Dermabond Catheter securement technique: 2-0 silk Contrast: Contrast agent: None Contrast volume: N/A Radiation dose: Total Fluoroscopic dose: Reference air Kerma 27.7 mGy. Additional details: Additional description of procedure: N/A Additional findings: N/A Equipment details: N/A Estimated blood loss: Less than 10 cc [facility]-[id number] [facility]-[id number] Performing Organization Address City/State/Zipcode Phone Number [facility] [address] [place] [address] [place] Guided Vascular Access (05/24/2017 3:15 PM INTEGRATION ARCHITECT) Narrative Performed At EXAMINATION:IR TUNNELED CENTRAL LINE PLACEMENT, US GUIDED VASCULAR RADIANT ACCESS CLINICAL HISTORY:PYELONEPHRITISCOMPLICATED (DMIMMUNODIFFHX OF STONESPRIOR SURGERYNOT RESPONDING TO ABX) COMPARISON:None. PROCEDURE: Tunneled central venous catheter placement Performing Radiologist: Jonathan Park MD Assistants: None Pre Procedure Diagnosis: PYELONEPHRITISCOMPLICATED (DMIMMUNODIFFHX OF STONESPRIOR SURGERYNOT RESPONDING TO ABX) Post Procedure Diagnosis: PYELONEPHRITISCOMPLICATED (DMIMMUNODIFFHX OF STONESPRIOR SURGERYNOT RESPONDING TO ABX) Indication: IV access for fluids/medication/blood draws Complications: No immediate post procedure complications. IMPRESSION: 1.Technically successful fluoroscopic insertion of a duallumen power injectable tunneled central venous catheter. 2.The right internal jugular vein is patent and compressible on preprocedure ultrasound. PLAN: The tunneled central venous catheter is ready for immediate use. PROCEDURE SUMMARY: 1.Venous access with ultrasound guidance 2.Tunneled central venous catheter placement under fluoroscopic guidance PROCEDURE DETAILS: Pre-procedure: Comparison studies: None Written and informed consent for the procedure and monitored conscious sedation was obtained from the patient. Prophylactic antibiotics: None Preparation: The right anterior chest wall and neck was prepared and draped using all elements of maximal sterile barrier technique including sterile gloves, sterile gown, catheter, mask, large sterile sheet, sterile ultrasound probe cover, hand hygiene and cutaneous antisepsis using chlorhexidine. Anesthesia/Sedation: Level of anesthesia: Moderate Sedation Medications used: Fentanyl and Versed, 1% lidocaine and lidocaine with epinephrine Anesthesia administration: Pulse oximetry, heart rate, and blood pressure were continuously monitored by a radiology nurse and the performing provider. Duration of intraservice [id number] anesthesia/sedation: 12 minutes Access: Local anesthesia was administered. The vein was evaluated with preprocedure ultrasound and noted to be patent. Real-time ultrasound was used to visualize needle entry into the vessel and a permanent image was stored.A 0.035 inch J-wire was advanced into the inferior vena cava and an image was archived. Vein accessed: Right internal jugular vein Access technique: 5 Bangladeshi micropuncture set Venography: Vein catheterized: N/A Indication for venography: Not performed Findings: N/A Central venous catheter placement: An incision was made over the chest wall, and the catheter was tunneled subcutaneously to the venous access site and trimmed to the appropriate length. The catheter was advanced via a peel-away sheath into the vein under fluoroscopic guidance. The catheter tip location was fluoroscopically verified and an image was archived. Catheter Brand/Type: Powerline (IdentiGEN) Catheter size: 6 Bangladeshi Catheter Tip Location: Atriocaval junction Catheter flush: None Closure: The neck access site was closed and the catheter was secured to the subcutaneous tissues. A sterile bandage was applied. Hemostasis was achieved with manual compression. Access site closure technique: Dermabond Catheter securement technique: 2-0 silk Contrast: Contrast agent: None Contrast volume: N/A Radiation dose: Total Fluoroscopic dose: Reference air Kerma 27.7 mGy. Additional details: Additional description of procedure: N/A Additional findings: N/A Equipment details: N/A Estimated blood loss: Less than 10 cc [id number] Procedure Note Hm Interface, Radiology Results Incoming - 05/24/2017 3:54 PM INTEGRATION ARCHITECT EXAMINATION: IR TUNNELED CENTRAL LINE PLACEMENT, US GUIDED VASCULAR ACCESS CLINICAL HISTORY: PYELONEPHRITIS COMPLICATED (DM IMMUNODIFF HX OF STONES PRIOR SURGERY NOT RESPONDING TO ABX) COMPARISON: None. PROCEDURE: Tunneled central venous catheter placement Performing Radiologist: Jonathan Park MD Assistants: None Pre Procedure Diagnosis: PYELONEPHRITIS COMPLICATED (DM IMMUNODIFF HX OF STONES PRIOR SURGERY NOT RESPONDING TO ABX) Post Procedure Diagnosis: PYELONEPHRITIS COMPLICATED (DM IMMUNODIFF HX OF STONES PRIOR SURGERY NOT RESPONDING TO ABX) Indication: IV access for fluids/medication/blood draws Complications: No immediate post procedure complications. IMPRESSION: 1. Technically successful fluoroscopic insertion of a dual lumen power injectable tunneled central venous catheter. 2. The right internal jugular vein is patent and compressible on preprocedure ultrasound. PLAN: The tunneled central venous catheter is ready for immediate use. PROCEDURE SUMMARY: 1. Venous access with ultrasound guidance 2. Tunneled central venous catheter placement under fluoroscopic guidance PROCEDURE DETAILS: Pre-procedure: Comparison studies: None Written and informed consent for the procedure and monitored conscious sedation was obtained from the patient. Prophylactic antibiotics: None Preparation: The right anterior chest wall and neck was prepared and draped using all elements of maximal sterile barrier technique including sterile gloves , sterile gown, catheter, mask, large sterile sheet, sterile ultrasound probe cover, hand hygiene and cutaneous antisepsis using chlorhexidine. Anesthesia/Sedation: Level of anesthesia: Moderate Sedation Medications used: Fentanyl and Versed, 1% lidocaine and lidocaine with epinephrine Anesthesia administration: Pulse oximetry, heart rate, and blood pressure were continuously monitored by a radiology nurse and the performing provider. Duration of intraservice [id number] anesthesia/sedation: 12 minutes Access: Local anesthesia was administered. The vein was evaluated with preprocedure ultrasound and noted to be patent. Real-time ultrasound was used to visualize needle entry into the vessel and a permanent image was stored. A 0.035 inch J-wire was advanced into the inferior vena cava and an image was archived. Vein accessed: Right internal jugular vein Access technique: 5 Bangladeshi micropuncture set Venography: Vein catheterized: N/A Indication for venography: Not performed Findings: N/A Central venous catheter placement: An incision was made over the chest wall, and the catheter was tunneled subcutaneously to the venous access site and trimmed to the appropriate length. The catheter was advanced via a peel-away sheath into the vein under fluoroscopic guidance. The catheter tip location was fluoroscopically verified and an image was archived. Catheter Brand/Type: Powerline (Bard) Catheter size: 6 Bangladeshi Catheter Tip Location: Atriocaval junction Catheter flush: None Closure: The neck access site was closed and the catheter was secured to the subcutaneous tissues. A sterile bandage was applied. Hemostasis was achieved with manual compression. Access site closure technique: Dermabond Catheter securement technique: 2-0 silk Contrast: Contrast agent: None Contrast volume: N/A Radiation dose: Total Fluoroscopic dose: Reference air Kerma 27.7 mGy. Additional details: Additional description of procedure: N/A Additional findings: N/A Equipment details: N/A Estimated blood loss: Less than 10 cc [facility]-[id number] [facility]-[id number] Performing Organization Address City/State/Zipcode Phone Number [facility] [address] [place] [address] Phosphorus level (05/24/2017 12:00 PM INTEGRATION ARCHITECT) Phosphorus 3.0 2.4 - 4.5 mg/dL [facility] DEPARTMENT OF PATHOLOGY AND GENOMIC MEDICINE Specimen Plasma specimen Performing Organization Address City/State/Zipcode Phone Number [facility] DEPARTMENT OF PATHOLOGY [address] [place] [address] AND [facility] C difficile toxin (05/22/2017 9:20 PM INTEGRATION ARCHITECT) Clostridium difficile No Clostridium difficle toxin present [facility] DEPARTMENT OF toxin Comment: PATHOLOGY AND GENOMIC Specimen Information MEDICINE Specimen Source: Stool Specimen Site: Nonpreserved Specimen Stool - Nonpreserved Performing Organization Address City/State/Zipcode Phone Number [facility] DEPARTMENT OF PATHOLOGY AND [address] [place] [address] [facility] Soluble fibrin monomer (05/22/2017 2:28 PM INTEGRATION ARCHITECT) Soluble fibrin monomer Positive (A) Negative [facility] Comment: Performed by [facility], [address] [place] [address] [email or web address] Eaton MD - Lab. Director Specimen Plasma specimen Performing Organization Address City/State/Zipcode Phone Number [facility] [address] [place] [address] Fibrinogen (05/22/2017 2:28 PM INTEGRATION ARCHITECT) Fibrinogen 696 (H) 200 - 450 mg/dL [facility] DEPARTMENT OF PATHOLOGY AND GENOMIC MEDICINE Specimen Blood Performing Organization Address City/[facility]/Zipcode Phone Number [facility] DEPARTMENT OF PATHOLOGY [address] [place] [address] [facility] D-dimer (05/22/2017 2:28 PM INTEGRATION ARCHITECT) D-dimer 1.00 (H) 0.00 - 0.40 ug/mL [facility] DEPARTMENT OF Comment: PATHOLOGY AND GENOMIC Units are ug/ml Fibrinogen Equivalent Unit. MEDICINE When combined with low clinical probability, D-dimer results of less than 0.5 ug/ml FEU have a good negativepredictive value in excluding PE or DVT. For D-dimer results greater than 0.5ug/ml FEU further testing is indicated if PE or DVT is suspectedclinically. Elevated D-dimer results have been reported in DVT, PE, and DIC cases and may indicate the presence of a clot. D-dimer results may be elevated due to old age, , inflammatory diseases, trauma, post-operative states, sepsis, and malignancies. Specimen Blood Performing Organization Address [facility]/Zipcode Phone Number [facility] DEPARTMENT OF PATHOLOGY [address] [place] [address]. [place] [address] AND [facility] LDH (05/22/2017 2:28 PM INTEGRATION ARCHITECT) LDH 163 87 - 225 U/L [facility] DEPARTMENT OF PATHOLOGY AND [facility] Specimen Plasma specimen Performing Organization Address [facility] Services[facility] Phone Number [facility] DEPARTMENT OF PATHOLOGY [address] [place] [address]. [place] [address] AND [facility] ECG Pre/Post Op (05/22/2017 12:33 AM INTEGRATION ARCHITECT) Ventricular rate 74 [facility] MUSE Atrial rate 74 [facility] MUSE [place] interval 140 [facility] MUSE QRSD interval 86 [facility] MUSE QT interval 390 [facility] MUSE QTC interval 432 [facility] MUSE P axis 1 39 [facility] MUSE QRS axis 1 40 [facility] MUSE T wave axis 26 [facility] MUSE EKG impression Normal sinus rhythm-Normal ECG-In automated [facility] MUSE comparison with ECG of 20-MAY-2017 17:02,-Vent. rate has decreased BY 42 BPM- Performing Organization Address [facility] Servicescode Phone Number [facility] MUSE [address] [place] [address] Lactic acid level (05/21/2017 3:31 PM INTEGRATION ARCHITECT) Lactic acid 0.7 0.5 - 2.2 mmol/L [facility] DEPARTMENT OF PATHOLOGY AND [facility] Specimen Plasma specimen Performing Organization Address [facility] Services[facility] Phone Number [facility] DEPARTMENT OF PATHOLOGY [address] [place] [address]. [place] [address] AND [facility] CT Abdomen Pelvis Wo Contrast (05/20/2017 7:14 PM INTEGRATION ARCHITECT)Only the most recent of2 resultswithin the time period is included. Narrative Performed At CT ABDOMEN PELVIS WO CONTRAST [facility] CLINICAL INDICATION:fever and vomitinghx of renal stents TECHNIQUE: Multidetector CT of the abdomen and pelvis was performed without intravenous administration of iodinated contrast with multiplanar reformats. CT scans are performed using radiation dose reduction techniques (iterative reconstruction and/or automated exposure control). Technical factors are evaluated and adjusted to ensure appropriate moderation of exposure. Automated dose management technology is applied to adjust radiation exposure while achieving a diagnostic quality image. COMPARISON:CT 03/22/2017. FINDINGS: Evaluation of abdominopelvic contents limited due to lack of IV contrast. Lung bases:Few subcentimeter nodules at the left lung base are stable. Liver:Normal. Gallbladder and biliary:Gallbladder is relatively contracted. Common bile duct is grossly not dilated. Pancreas:Mildly atrophic with fatty replacement. Spleen:Normal. Gastrointestinal:Partially visualized large hiatal hernia. 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 Short segment of transverse colon is also herniated into the thorax. Colonic diverticulosis. Large and small bowel are normal in caliber. Appendix is visualized and appears normal. Adrenals:Normal. Kidneys and ureters: Severe right renal cortical thinning and scarring. Severe left hydronephrosis, increased from prior. Left perinephric fat stranding. No renal or ureteral calculi are visualized. Urinary bladder: Relatively decompressed. No urinary bladder calculi are visualized. Lymph nodes:No enlarged lymph nodes in the abdomen or pelvis. Peritoneum:No ascites or free air. Vascular:Moderate atherosclerotic changes of the abdominal aorta and major branch vessels. Evaluation of vessel lumens is limited due to lack of IV contrast. Reproductive organs:Uterus is absent. Unremarkable adnexae. Abdominal wall: Fat-containing right femoral hernia. Gluteal subcutaneous injection granulomas. Bones:Mild degenerative changes. IMPRESSION: 1. Severe left hydronephrosis, increased from prior CT of 03/22/2017. No renal, ureteral, or urinary bladder calculi are visualized. Findings possibly related to ureteropelvic junction obstruction or ureteral stricture. Left perinephric stranding may be related to urinary tract obstruction and/or infection and can be correlated. 2. Large hiatal hernia partially visualized. 3. Colonic diverticulosis without diverticulitis. 4. Other stable/incidental findings as above. [facility]-[id number] Procedure Note [facility], Radiology Results Incoming - 05/20/2017 7:[address] ABDOMEN PELVIS WO CONTRAST CLINICAL INDICATION: fever and vomiting hx of renal stents TECHNIQUE: Multidetector CT of the abdomen and pelvis was performed without intravenous administration of iodinated contrast with multiplanar reformats. CT scans are performed using radiation dose reduction techniques (iterative reconstruction and/or automated exposure control). Technical factors are evaluated and adjusted to ensure appropriate moderation of exposure. Automated dose management technology is applied to adjust radiation exposure while achieving a diagnostic quality image. COMPARISON: CT 03/22/2017. FINDINGS: Evaluation of abdominopelvic contents limited due to lack of IV contrast. Lung bases: Few subcentimeter nodules at the left lung base are stable. Liver: Normal. Gallbladder and biliary: Gallbladder is relatively contracted. Common bile duct is grossly not dilated. Pancreas: Mildly atrophic with fatty replacement. Spleen: Normal. Gastrointestinal: Partially visualized large hiatal hernia. 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 Short segment of transverse colon is also herniated into the thorax. Colonic diverticulosis. Large and small bowel are normal in caliber. Appendix is visualized and appears normal. Adrenals: Normal. Kidneys and ureters: Severe right renal cortical thinning and scarring. Severe left hydronephrosis, increased from prior. Left perinephric fat stranding. No renal or ureteral calculi are visualized. Urinary bladder: Relatively decompressed. No urinary bladder calculi are visualized. Lymph nodes: No enlarged lymph nodes in the abdomen or pelvis. Peritoneum: No ascites or free air. Vascular: Moderate atherosclerotic changes of the abdominal aorta and major branch vessels. Evaluation of vessel lumens is limited due to lack of IV contrast. Reproductive organs: Uterus is absent. Unremarkable adnexae. Abdominal wall: Fat-containing right femoral hernia. Gluteal subcutaneous injection granulomas. Bones: Mild degenerative changes. IMPRESSION: 1. Severe left hydronephrosis, increased from prior CT of 03/22/2017. No renal, ureteral, or urinary bladder calculi are visualized. Findings possibly related to ureteropelvic junction obstruction or ureteral stricture. Left perinephric stranding may be related to urinary tract obstruction and/or infection and can be correlated. 2. Large hiatal hernia partially visualized. 3. Colonic diverticulosis without diverticulitis. 4. Other stable/incidental findings as above. [facility]-[id number] Performing Organization Address City/State/Zipcode Phone Number [facility] [address] [place] [address] Respiratory pathogen panel (05/20/2017 5:32 PM INTEGRATION ARCHITECT) Respiratory pathogen Negative for all pathogens tested: [facility] DEPARTMENT OF panel Negative for Adenovirus PATHOLOGY AND GENOMIC Negative for Coronavirus HKU1 MEDICINE Negative for Coronavirus NL63 Negative for Coronavirus 229E Negative for Coronavirus OC43 Negative for Human Metapneumovirus Negative for Rhinovirus/Enterovirus Negative for Influenza A Negative for Influenza A/H1 Negative for Influenza A/H3 Negative for Influenza A/H1-2009 Negative for Influenza B Negative for Parainfluenza Virus 1 Negative for Parainfluenza Virus 2 Negative for Parainfluenza Virus 3 Negative for Parainfluenza Virus 4 Negative for Respiratory Syncytial Virus Negative for Bordetella pertussis Negative for Chlamydophila pneumoniae Negative for Mycoplasma pneumoniae This real-time PCR assay detects the presence of nucleic acids (RNA or DNA) for the respiratory pathogens listed. A result of "Not-detected" does not exclude the possibility of the presence of one or more pathogens at concentrations less than the detectable limits of the assay. Comment: Specimen Information Specimen Source: Nares Specimen Site: Rightuosmo Specimen Nares Performing Organization Address City/State/Zipcode Phone Number [facility] DEPARTMENT OF PATHOLOGY AND [address] [place] [address] GENOMIC MEDICINE Influenza antigen (05/20/2017 5:32 PM INTEGRATION ARCHITECT) Influenza antigen Negative for Influenza A/B antigen. [facility] DEPARTMENT OF PATHOLOGY Comment: AND GENOMIC MEDICINE Specimen Information Specimen Source: Nares Specimen Site: Right Specimen Nares - Right Performing Organization Address City/State/Zipcode Phone Number [facility] DEPARTMENT OF PATHOLOGY [address] [place] [address] AND GENOMIC MEDICINE CRITICAL CARE (05/20/2017 5:15 PM INTEGRATION ARCHITECT) Narrative Performed At Jesus Vásquez DO 05/22/2017 10:33 AM Critical Care Performed by: JESUS VÁSQUEZ Authorized by: JESUS VÁSQUEZ Critical care provider statement: Critical care time (minutes):32 Critical care was necessary to treat or prevent imminent or life-threatening deterioration of the following conditions:Sepsis Critical care was time spent personally by me on the following activities:Obtaining history from patient or surrogate, examination of patient, evaluation of patient's response to treatment, discussions with consultants, development of treatment plan with patient or surrogate, review of old charts, re-evaluation of patient's condition, pulse oximetry, ordering and review of radiographic studies, ordering and review of laboratory studies and ordering and performing treatments and interventions XR Chest 2 Vw (04/25/2017 6:31 PM INTEGRATION ARCHITECT)Only the most recent of2 resultswithin the time period is included. Narrative Performed At EXAMINATION:XR CHEST 2 VW [facility] CLINICAL HISTORY:J18.9 Pneumoniaunspecified organism, Pneumonia COMPARISON:CT of the chest dated 04/06/2017 and chest 2 view dated 04/13/2017 IMPRESSION: 1. A large hiatal hernia again noted. 2. There is atelectasis in the lower lobes. No consolidation or pleural effusion. 3. The cardiac silhouette is not enlarged. Pulmonary vasculature is within normal limits. 4. The visualized osseous structures are intact. There is mild degenerative disc disease of the thoracic spine. [facility]-[id number] Procedure Note Hm Interface, Radiology Results Incoming - 04/25/2017 6:38 PM INTEGRATION ARCHITECT EXAMINATION: XR CHEST 2 VW CLINICAL HISTORY: J18.9 Pneumonia unspecified organism, Pneumonia COMPARISON: CT of the chest dated 04/06/2017 and chest 2 view dated 04/13/2017 IMPRESSION: 1. A large hiatal hernia again noted. 2. There is atelectasis in the lower lobes. No consolidation or pleural effusion. 3. The cardiac silhouette is not enlarged. Pulmonary vasculature is within normal limits. 4. The visualized osseous structures are intact. There is mild degenerative disc disease of the thoracic spine. [facility]-[id number] Performing Organization Address City/State/Zipcode Phone Number [facility] [address] [place] [address] POC Influenza A/B (04/25/2017 5:16 PM INTEGRATION ARCHITECT) Rapid Influenza A Ag negative Rapid Influenza B Ag negative Specimen Swab Sputum culture (04/07/2017 9:00 PM INTEGRATION ARCHITECT) Sputum culture isolate Normal oral jaylen isolated. [facility] DEPARTMENT OF Normal oral jaylen and PATHOLOGY AND GENOMIC (A) MEDICINE Comment: Specimen Information Specimen Source: Sputum Specimen Site: Expectorated Sputum culture isolate Pseudomonas aeruginosa [facility] DEPARTMENT OF Occasionalmucoid PATHOLOGY AND GENOMIC (A) MEDICINE Sputum culture isolate Pseudomonas aeruginosa [facility] DEPARTMENT OF Few PATHOLOGY AND GENOMIC (A) MEDICINE Specimen Sputum - Expectorated Organism Antibiotic Method Susceptibility Pseudomonas aeruginosa Amikacin PELON <=4 mcg/mL: Susceptible Pseudomonas aeruginosa Aztreonam PELON 8 mcg/mL: Susceptible Pseudomonas aeruginosa Ceftazidime PELON 4 mcg/mL: Susceptible Pseudomonas aeruginosa Ciprofloxacin PELON >2 mcg/mL: Resistant Pseudomonas aeruginosa Cefepime PELON 8 mcg/mL: Susceptible Pseudomonas aeruginosa Gentamicin PELON 2 mcg/mL: Susceptible Pseudomonas aeruginosa Imipenem PELON 2 mcg/mL: Susceptible Pseudomonas aeruginosa Levofloxacin PELON >4 mcg/mL: Resistant Pseudomonas aeruginosa Tobramycin PELON <=0.5 mcg/mL: Susceptible Pseudomonas aeruginosa Piperacillin/Tazobactam PELON 8/4 mcg/mL: Susceptible Pseudomonas aeruginosa Amikacin PELON 8 mcg/mL: Susceptible Pseudomonas aeruginosa Aztreonam PELON 4 mcg/mL: Susceptible Pseudomonas aeruginosa Ceftazidime PELON 8 mcg/mL: Susceptible Pseudomonas aeruginosa Ciprofloxacin PELON 1 mcg/mL: Susceptible Pseudomonas aeruginosa Gentamicin PELON 4 mcg/mL: Susceptible Pseudomonas aeruginosa Imipenem PELON 2 mcg/mL: Susceptible Pseudomonas aeruginosa Levofloxacin PELON 2 mcg/mL: Susceptible Pseudomonas aeruginosa Tobramycin PELON 1 mcg/mL: Susceptible Pseudomonas aeruginosa Piperacillin/Tazobactam PELON 16/4 mcg/mL: Susceptible Performing Organization Address City/State/Zipcode Phone Number [facility] DEPARTMENT OF PATHOLOGY AND [address] [place] [address] [facility] Lung Ventilation Perfusion (04/06/2017 9:43 AM INTEGRATION ARCHITECT) Narrative Performed At CLINICAL HISTORY: PE [facility] TECHNIQUE: The patient breathed 15-20 mCi of xenon-133 gas through a closed ventilation system while dynamic imaging of the lungs was performed in the posterior and anterior projections. The patient was then injec ayo with 5 mCi of [id number] intravenously, followed by imaging of the lungs in anterior, posterior, and oblique projections. FINDINGS: Bilateral, ill-defined perfusion defects in the lung bases are fairly large, right greater than left, but matched to ventilation abnormalities and large areas of consolidation/pneumonia on today's CT. IMPRESSION: Borderline Low-Intermediate Probability for pulmonary embolism by PIOPED criteria. However, the findings are almost certainly due to the extensive pneumonia seen on today's CT scan, which greatly lowers the accuracy of a VQ scan. [facility]-[id number] Procedure Note Interface, Radiology Results Incoming - 04/06/2017 10:18 AM INTEGRATION ARCHITECT CLINICAL HISTORY: PE TECHNIQUE: The patient breathed 15-20 mCi of xenon-133 gas through a closed ventilation system while dynamic imaging of the lungs was performed in the posterior and anterior projections. The patient was then injected with 5 mCi of [id number] intravenously, followed by imaging of the lungs in anterior, posterior, and oblique projections. FINDINGS: Bilateral, ill-defined perfusion defects in the lung bases are fairly large, right greater than left, but matched to ventilation abnormalities and large areas of consolidation/pneumonia on today's CT. IMPRESSION: Borderline Low-Intermediate Probability for pulmonary embolism by PIOPED criteria. However, the findings are almost certainly due to the extensive pneumonia seen on today's CT scan, which greatly lowers the accuracy of a VQ scan. [facility]-[id number] Performing Organization Address City/State/Zipcode Phone Number [facility] [address] [place] [address] CT Chest Wo Contrast (04/06/2017 7:20 AM INTEGRATION ARCHITECT) Narrative Performed At EXAMINATION: [facility] CT CHEST WO CONTRAST CLINICAL HISTORY: pneumonia TECHNIQUE: Multiple axial images of the chest were obtained without intravenous contrast. The lack of intravenous contrast reduces the sensitivity of detecting solid organ disease and evaluating vasculature. Sagittal and coronal computerized reformatted images were also obtained.Automatic exposure control and iterative reconstruction techniques used to reduce dose. COMPARISON: None. IMPRESSION: Dense consolidation with air bronchograms throughout the superior segment of the right lower lobe and to a lesser extent the left lower lobe worrisome for multifocal pneumonia. Patchy groundglass opacities throughout the bilateral upper lobes lingula and right middle lobe also most likely secondary to a pneumonia There is a large hiatal hernia with the majority of the stomach herniating into the mediastinum as well as a portion of the transverse colon. No definite evidence of obstruction Cardiomegaly Small amount of free fluid No significant lymphadenopathy is present The heart is nonenlarged Extensive subcutaneous emphysema is present in the anterior and lateral soft tissues of the left hemithorax. No evidence of pneumothorax or pneumomediastinum. No free air present. Diffuse calcified atherosclerotic vascular disease throughout the arterial structures. Degenerative changes are present throughout the bony structures without evidence of a suspicious focal lesion. Images upper abdomen unremarkable [facility]-[id number] Procedure Note Interface, Radiology Results Incoming - 04/06/2017 7:59 AM INTEGRATION ARCHITECT EXAMINATION: CT CHEST WO CONTRAST CLINICAL HISTORY: pneumonia TECHNIQUE: Multiple axial images of the chest were obtained without intravenous contrast. The lack of intravenous contrast reduces the sensitivity of detecting solid organ disease and evaluating vasculature. Sagittal and coronal computerized reformatted images were also obtained.Automatic exposure control and iterative reconstruction techniques used to reduce dose. COMPARISON: None. IMPRESSION: Dense consolidation with air bronchograms throughout the superior segment of the right lower lobe and to a lesser extent the left lower lobe worrisome for multifocal pneumonia. Patchy groundglass opacities throughout the bilateral upper lobes lingula and right middle lobe also most likely secondary to a pneumonia There is a large hiatal hernia with the majority of the stomach herniating into the mediastinum as well as a portion of the transverse colon. No definite evidence of obstruction Cardiomegaly Small amount of free fluid No significant lymphadenopathy is present The heart is nonenlarged Extensive subcutaneous emphysema is present in the anterior and lateral soft tissues of the left hemithorax. No evidence of pneumothorax or pneumomediastinum. No free air present. Diffuse calcified atherosclerotic vascular disease throughout the arterial structures. Degenerative changes are present throughout the bony structures without evidence of a suspicious focal lesion. Images upper abdomen unremarkable [facility]-[id number] Performing Organization Address City/State/Zipcode Phone Number [facility] [address] [place] [address] Surgical pathology request (04/02/2017 11:21 AM INTEGRATION ARCHITECT) [facility] DEPARTMENT OF PATHOLOGY AND GENOMIC MEDICINE Surgical pathology report See link below for PDF [facility] DEPARTMENT OF Lab Report PATHOLOGY AND GENOMIC MEDICINE Result status This is Final Report to [facility] DEPARTMENT OF [id number] PATHOLOGY AND GENOMIC MEDICINE Performing Organization Address [facility] Services[facility] Phone Number [facility] DEPARTMENT OF PATHOLOGY [address] [place] [address] AND GENOMIC MEDICINE POC glucose (04/02/2017 7:07 AM INTEGRATION ARCHITECT) POC glucose 95 65 - 99 mg/dL [facility] DEPARTMENT OF PATHOLOGY Comment: AND GENOMIC MEDICINE Meter ID: [id number] Data Recovery Planner: Hoa Leon Performing Organization Address City/State/Zipcode Phone Number [facility] DEPARTMENT OF PATHOLOGY [address] [place] [address] AND GENOMIC MEDICINE Type and screen (04/02/2017 6:42 AM INTEGRATION ARCHITECT) ABO grouping O [facility] DEPARTMENT OF PATHOLOGY AND GENOMIC MEDICINE Rh type POS [facility] DEPARTMENT OF PATHOLOGY AND GENOMIC MEDICINE Antibody screen (gel) NEG [facility] DEPARTMENT OF PATHOLOGY AND GENOMIC MEDICINE Specimen Blood Performing Organization Address City/[facility]/Zipcode Phone Number [facility] DEPARTMENT OF PATHOLOGY [address] [place] [address] AND GENOMIC MEDICINE after 03/10/2017 Insurance Payer Benefit Plan / Group Subscriber ID Type Phone Address MEDICARE MEDICARE PART A AND B xxxxxxxxxx Medicare [place], [place] ([place]) [place] [address] Advance Directives Patient has advance care planning documents on file. For more information, please contact:John Krueger[address] [place] [address]
--- OUTSIDE RECORDS SUMMARY | 2018-03-11 22:18 | XMS REPORT ---
:1950 Author Organization [facility] Address [facility] [address] Yusuf [address] [place] [address] Care Team Providers Name Role Phone Unavailable Unavailable Unavailable Problems This patient has no known problems. Allergies, Adverse Reactions, Alerts This patient has no known allergies or adverse reactions. Medications This patient has no known medications.
--- OUTSIDE RECORDS SUMMARY | 2018-03-11 22:18 | XMS REPORT ---
:1950 Author Organization [employer] Care Team Providers Name Role Phone PabloNeo gillespie Provider Role Unavailable Allergies No Known Allergies Problems Problem Type Condition Code Onset Dates Condition Status Assessment Hyperlipidemia E78.5 Active Problem Stable angina I20.9 Active Problem Hypertension I10 Active Problem GERD (gastroesophageal reflux K21.9 Active disease) Problem Hyperlipidemia E78.5 Active Problem Family history of diabetes mellitus Z83.3 Active Problem Chronic kidney disease, stage 3 N18.3 Active Problem Hypertriglyceridemia E78.1 Active Problem Hiatal hernia K44.9 Active Assessment GERD (gastroesophageal reflux K21.9 Active disease) Assessment Stable angina I20.9 Active Assessment Language barrier affecting health Z78.9 Active care Assessment Hypertension I10 Active Assessment Family history of diabetes mellitus Z83.3 Active Assessment Chronic kidney disease, stage 3 N18.3 Active Medications Medication Code Code Instructions Start End Status Dosage System Date Date Fish Oil [facility] [address]-82 Active not defined Tramadol HCl [facility] 00944324613 50 MG Orally Active 1 tablet every 6 hrs as needed Vitamin D3 [facility] 40045981892 2000 UNIT Active 1 capsule Orally Once a day Xyzal [facility] 15672130973 5 MG Orally Active 1 tablet Once a day in the evening Flonase [facility] 57967163764 50 MCG/ACT Active 1 spray in Nasally Once a each day nostril Atorvastatin [facility] 73764058907 20 MG Orally Active 1 tablet Calcium Once a day Calcitriol [facility] 74053735670 0.25 MCG Orally Active 1 capsule Once a day Carvedilol [facility] 75845655079 6.25 MG Orally September 03, Active 1 tablet Twice a day 2017 with food Isosorbide [facility] 87247023472 10 MG Orally September 03, Active 1 tablet Mononitrate Twice a day 2017 Amlodipine [facility] 20087622825 10 MG Orally Active 1 tablet Besylate Once a day Results No Known Results Summary Purpose [employer] Submission
--- OUTSIDE RECORDS SUMMARY | 2018-03-11 22:18 | XMS REPORT ---
:1950 Author Organization eClinicalWorks Care Team Providers Name Role Phone Neo Shah Provider Role Unavailable Allergies, Adverse Reactions, Alerts Substance Reaction Event Type N.K.D.A. Info Not Available Non Drug Allergy Problems Problem Type Condition Code Onset Dates Condition Status Assessment Chronic kidney disease, stage 3 N18.3 Active Problem Stable angina I20.9 Active Assessment Hyperlipidemia E78.5 Active Assessment Hypertension I10 Active Problem Hypertension I10 Active Problem GERD (gastroesophageal reflux K21.9 Active disease) Problem Hyperlipidemia E78.5 Active Problem Family history of diabetes mellitus Z83.3 Active Problem Chronic kidney disease, stage 3 N18.3 Active Problem Hypertriglyceridemia E78.1 Active Problem Hiatal hernia K44.9 Active Medications Medication Code Code Instructions Start End Status Dosage System Date Date Tramadol HCl [facility] 19298547411 50 MG Orally Active 1 tablet every 6 hrs as needed Flonase [facility] 22339872106 50 MCG/ACT Active 1 spray Nasally Once a in each day nostril Calcitriol [facility] 21488061779 0.25 MCG Orally Active 1 capsule Once a day Vitamin D3 [facility] 28149389453 2000 UNIT Active 1 capsule Orally Once a day Fish Oil [facility] [address]-22 Active not defined Atorvastatin [facility] 97271527116 20 MG Orally Active 1 tablet Calcium Once a day Carvedilol [facility] 06967382828 6.25 MG Orally September 03, Active 1 tablet Twice a day 2017 with food Protonix [facility] 73771955050 40 MG Orally August Inactive 1 tablet Once a day [address] [facility] 36755541052 10 MG Orally September 03, Active 1 tablet Mononitrate Twice a day [address] [facility] 80173944386 5 MG Orally Active 1 tablet Once a day in the evening Amlodipine [facility] 21785042173 10 MG Orally Active 1 tablet Besylate Once a day Metoprolol ND 41167195578 25 MG Orally August Inactive 1 tablet Tartrate Twice a day , with food 2018 Results No Known Results Summary Purpose eClinicalWorks Submission
[2018-03-11 22:58] LABS: Absolute Lymphocytes (CBC) 1.8 K/uL (0.7-4.9); Absolute Monocytes 0.6 K/uL (0.1-1.3); Absolute Neutrophil 5.9 K/uL (1.8-8.0); Basophils % 0.7 % (0-1.3); Eosinophils % 2.6 % (0-4.4); Hematocrit 38.3 % (36.0-45.0); Lymphocytes % 20.5 % (15.3-44.8); MCH 28.7 pg (27.0-35.0); MCV 87.1 fL (80-100); MPV 8.7 fL (7.6-11.3); Monocytes % 6.9 % (3.3-12.3); Protime INR 1.05; RBC Red Blood Cell Count 4.39 M/uL (3.86-4.86)
[2018-03-11 23:14] LABS: ALT/SGPT 19 U/L (12-78); AST/SGOT 21 U/L (15-37); Albumin 3.1 g/dL (3.4-5.0); Alkaline Phosphatase 112 U/L (45-117); BUN Blood Urea Nitrogen 42 mg/dL (7-18); Bicarbonate 21 mmol/L (21-32); Bilirubin Direct 0.1 mg/dL (0-0.2); Bilirubin Total 0.2 mg/dL (0.2-1.0); Glucose Level 151 mg/dL (74-106); Magnesium 2.5 mg/dL (1.8-2.4); NT PRO-BNP 2146 pg/mL (<125); Potassium 4.5 mmol/L (3.5-5.1); Protein, Total 7.6 g/dL (6.4-8.2); Sodium Level 142 mmol/L (136-145); Troponin (Emerg Dept Use Only) < 0.02 ng/mL (0.0-0.045)
[2018-03-11] MEDS ORDERED: MORPHINE 2 MG/ML SYR ONE (23:17)
[2018-03-11] MEDS ORDERED: ONDANSETRON 4 MG/2 ML VIAL ONE (23:17)
--- NOTE | 2018-03-12 01:37 | EDPHYS ---
Physician Documentation [facility] Name: Lalitha Sethi Age: 68 yrs Sex: Female : 1950 Arrival Date: 03/11/2018 Time: 22:15 Bed 18 Private MD: Neo Shah ED Physician Sha Paiz HPI: 03/11 22:31 This 68 yrs old Female presents to ER via Unassigned with complaints of snw Vomiting, High Blood Pressure, Abdominal Pain, Low Back Pain. 22:31 The patient presents to the emergency department with nausea, vomiting, abdominal pain, snw chest pain . Onset: The symptoms/episode began/occurred suddenly, 1 hour(s) ago, and became worse and became persistent. Possible causes: food/hiatal hernia; acute NV; dissection. Associated signs and symptoms: Pertinent positives: abdominal pain, nausea, vomiting. Severity of symptoms: At their worst the symptoms were severe in the emergency department the symptoms are unchanged. The patient has not experienced similar symptoms in the past. It is unknown whether or not the patient has recently seen a physician. hx DM, HTN, Renal insuff, hiatal hernia,. Historical: - Allergies: 22:35 flu medication; rr5 - Home Meds: 22:35 Omeprazole Oral [Active]; Labetalol Oral [Active]; Isosorbide Mononitrate Oral [Active];rr5 - PMHx: 22:35 Hypertension; kidney failure; hiatal hernia; rr5 - PSHx: 22:35 kidney surgery; rr5 - Immunization history:: Adult Immunizations up to date, Flu vaccine is not up to date. - Social history:: Smoking status: Patient/guardian denies using tobacco, Patient/guardian denies using alcohol, street drugs. - Ebola Screening: : Patient negative for fever greater than or equal to 101.5 degrees Fahrenheit, and additional compatible Ebola Virus Disease symptoms Patient denies exposure to infectious person Patient denies travel to an Ebola-affected area in the 21 days before illness onset. ROS: 22:30 Constitutional: Negative for fever, chills, and weight loss, Eyes: Negative for injury, snw pain, redness, and discharge, ENT: Negative for injury, pain, and discharge, Neck: Negative for injury, pain, and swelling. 22:30 : Negative for injury, bleeding, discharge, and swelling, MS/Extremity: Negative for injury and deformity, Skin: Negative for injury, rash, and discoloration, Neuro: Negative for headache, weakness, numbness, tingling, and seizure. 22:30 Cardiovascular: Positive for chest pain, orthopnea, palpitations. 22:30 Respiratory: Positive for shortness of breath, at rest. 22:30 Abdomen/GI: Positive for abdominal pain, nausea and vomiting. 22:30 Back: Positive for radiated pain. 22:30 Psych: Positive for anxiety. Exam: 22:29 Head/Face: Normocephalic, atraumatic. Eyes: Pupils equal round and reactive to light, snw extra-ocular motions intact. Lids and lashes normal. Conjunctiva and sclera are non-icteric and not injected. Cornea within normal limits. Periorbital areas with no swelling, redness, or edema. ENT: Nares patent. No nasal discharge, no septal abnormalities noted. Tympanic membranes are normal and external auditory canals are clear. Oropharynx with no redness, swelling, or masses, exudates, or evidence of obstruction, uvula midline. Mucous membranes moist. Neck: Trachea midline, no thyromegaly or masses palpated, and no cervical lymphadenopathy. Supple, full range of motion without nuchal rigidity, or vertebral point tenderness. No Meningismus. Chest/axilla: Normal chest wall appearance and motion. Nontender with no deformity. No lesions are appreciated. 22:29 Respiratory: Lungs have equal breath sounds bilaterally, clear to auscultation and percussion. No rales, rhonchi or wheezes noted. No increased work of breathing, no retractions or nasal flaring. Abdomen/GI: Soft, non-tender, with normal bowel sounds. No distension or tympany. No guarding or rebound. No evidence of tenderness throughout. Back: No spinal tenderness. No costovertebral tenderness. Full range of motion. Skin: Warm, dry with normal turgor. Normal color with no rashes, no lesions, and no evidence of cellulitis. MS/ Extremity: Pulses equal, no cyanosis. Neurovascular intact. Full, normal range of motion. Neuro: Awake and alert, GCS 15, oriented to person, place, time, and situation. Cranial nerves II-XII grossly intact. Motor strength 5/5 in all extremities. Sensory grossly intact. Cerebellar exam normal. Normal gait. 22:29 Constitutional: The patient appears alert, awake, anxious, in obvious distress, in obvious pain, restless. 22:29 Cardiovascular: Rate: tachycardic, Rhythm: regular, Heart sounds: normal. Vital Signs: 22:35 BP 194 / 131; Pulse 83; Resp 18; Pulse Ox 96% ; Weight 63.5 kg; Height 4 ft. 7 in. rr5 (139.70 cm); Pain 10/10; 22:54 BP 173 / 89; Pulse 76; Resp 17; Temp 98.2(O); Pulse Ox 95% on 2 lpm NC; Pain 5/10; rr5 23:30 BP 169 / 79; Pulse 85; Resp 17; Pulse Ox 99% ; rr5 03/12 01:00 BP 186 / 76; Pulse 75; Resp 17; Pulse Ox 98% ; rr5 02:00 BP 192 / 89; Pulse 69; Resp 16; Pulse Ox 98% ; rr5 03/11 22:35 Body Mass Index 32.54 (63.50 kg, 139.70 cm) rr5 MDM: 03/11 22:22 Patient medically screened. snw 03/12 01:15 Data reviewed: vital signs, nurses notes. Data interpreted: Pulse oximetry: on room air snw is 99 %. Interpretation: normal. Counseling: I had a detailed discussion with the patient and/or guardian regarding: the historical points, exam findings, and any diagnostic results supporting the discharge/admit diagnosis, the presence of at least one elevated blood pressure reading (>120/80) during this emergency department visit, lab results, radiology results, the need to transfer to another facility. Physician consultation: Dr Manzanares was called at 01:16, was contacted at 01:16, regarding regarding transfer, to [facility]. Dr. Manzanares suggested that general surgery at [facility] might be available. Dr. 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 [facility] recommends transfer of pt to a higher level of care than both this and their facility can handle. Will try thoracic surgery at [place]. 01:26 Physician consultation: Dr Macario was called at 01:27, was contacted at 01:27, snw regarding patient's condition, (Thoracic surgery), Dr. Macario kindly recommends transfer to [place] to General Surgery and their service will consult as needed. Transfer center will contact General Surgery and call back for consultation and discussion of transfer., Pt accepted in transfer to [place].. 03/11 22:28 Order name: Basic Metabolic Panel; Complete Time: 23:18 snw 03/11 22:28 Order name: CBC with Diff; Complete Time: 23:12 snw 03/11 22:28 Order name: LFT's; Complete Time: 23:18 snw 03/11 22:28 Order name: Magnesium; Complete Time: 23:18 snw 03/11 22:28 Order name: NT PRO-BNP; Complete Time: 23:18 snw 03/11 22:28 Order name: PT-INR; Complete Time: 23:12 snw 03/11 22:28 Order name: Troponin (emerg Dept Use Only); Complete Time: 23:18 snw 03/11 22:28 Order name: XRAY Chest (1 view) sn 03/11 23:22 Order name: CT Stone Protocol [facility] 03/12 00:49 Order name: Urine Dipstick--Ancillary (enter results); Complete Time: 02:07 em1 03/12 01:13 Order name: Urine Microscopic Only rr5 03/12 02:16 Order name: Urine Culture EDSD 03/11 22:28 Order name: EKG; Complete Time: 22:29 snw 03/11 22:28 Order name: Cardiac monitoring; Complete Time: 22:39 snw 03/11 22:28 Order name: EKG - Nurse/Tech; Complete Time: 22:39 snw 03/11 22:28 Order name: IV Saline Lock; Complete Time: 22:39 snw 03/11 22:28 Order name: Labs collected and sent; Complete Time: 22:39 snw 03/11 22:28 Order name: O2 Per Protocol; Complete Time: 22:39 snw 03/11 22:28 Order name: O2 Sat Monitoring; Complete Time: 22:39 snw 03/11 23:50 Order name: Feliciano; Complete Time: 01:12 snw Administered Medications: 03/11 23:15 Drug: Zofran 2 mg Route: IVP; Site: left antecubital; rr5 03/12 02:30 Follow up: Response: No adverse reaction rr5 12/24 23:17 Drug: morphine 2 mg Route: IVP; Site: left antecubital; rr5 03/12 02:30 Follow up: Response: No adverse reaction rr5 02:10 Drug: morphine 2 mg Route: IVP; Site: left antecubital; rr5 02:30 Follow up: Response: No adverse reaction rr5 Disposition: 02:45 Co-signature as Attending Physician, Sha Paiz MD. pk Disposition: 03/12/18 01:37 Transfer ordered to [facility]. 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 - Reason for transfer: Higher level of care. - Accepting physician is Dr. Leal. - Condition is Stable. - Problem is an acute exacerbation. - Symptoms have improved. Signatures: Dispatcher [employer] EDMS Sha Paiz MD MD pk Heidi Gandara, CARD FEEDER-C CARD FEEDER-Csnw Ross Pastor, RN RN rr5 Corrections: (The following items were deleted from the chart) 01:34 01:26 Physician consultation: Dr Macario was called at 01:27, was contacted at 01:27, sly regarding patient's condition, (Thoracic surgery), Dr. Macario kindly recommends transfer to [place] to General Surgery and their service will consult as needed. Transfer center with contact General Surgery and call back for consultation and discussion of transfer., sly 02:41 01:37 03/12/2018 01:37 Transfer ordered to [facility]. 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 Reason for transfer: Higher level of care. Accepting physician is Dr. Leal. Condition is Stable. Problem is an acute exacerbation. Symptoms have improved. snw
--- NOTE | 2018-03-12 01:37 | ER ---
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 associated with nausea vomiting and burping episodes. pain score of 10/10. Transition of care: patient was not received from another setting of care. Onset of symptoms was March 11, 2018 at 20:00. Risk Assessment: Do you want to hurt yourself or someone else? Patient reports no desire to harm self or others. Initial Sepsis Screen: Does the patient meet any 2 criteria? No. Patient's initial sepsis screen is negative. Does the patient have a suspected source of infection? No. Patient's initial sepsis screen is negative. Care prior to arrival: Medication(s) given: omeprazole and labetalol. 22:35 Method Of Arrival: Ambulatory rr5 22:35 Acuity: BE 3 rr5 Historical: - Allergies: 22:35 flu medication; rr5 - Home Meds: 22:35 Omeprazole Oral [Active]; Labetalol Oral [Active]; Isosorbide Mononitrate Oral [Active];rr5 - PMHx: 22:35 Hypertension; kidney failure; hiatal hernia; rr5 - PSHx: 22:35 kidney surgery; rr5 - Immunization history:: Adult Immunizations up to date, Flu vaccine is not up to date. - Social history:: Smoking status: Patient/guardian denies using tobacco, Patient/guardian denies using alcohol, street drugs. - Ebola Screening: : Patient negative for fever greater than or equal to 101.5 degrees Fahrenheit, and additional compatible Ebola Virus Disease symptoms Patient denies exposure to infectious person Patient denies travel to an Ebola-affected area in the 21 days before illness onset. Screenin:40 Abuse screen: Denies threats or abuse. Denies injuries from another. Nutritional rr5 screening: No deficits noted. Tuberculosis screening: No symptoms or risk factors identified. Fall Risk IV access (20 points). Total Briggs Fall Scale indicates No Risk (0-24 pts). Assessment: 22:35 General: Appears uncomfortable, ill, Behavior is calm, cooperative, appropriate for 3 age. Pain: Complains of pain in chest Pain radiates to back Pain currently is 10 out of 10 on a pain scale. Quality of pain is described as aching, Pain began suddenly, Is intermittent. 22:35 Neuro: Level of Consciousness is awake, alert, obeys commands, Oriented to person, rr5 place, time. Cardiovascular: Capillary refill is > 3 seconds Patient's skin is warm and dry. Respiratory: Airway is patent Respiratory effort is even, unlabored, Respiratory pattern is regular, symmetrical. GI: Abdomen is round Reports gaseousness, nausea, vomiting. : No signs and/or symptoms were reported regarding the genitourinary system. EENT: No signs and/or symptoms were reported regarding the EENT system. Derm: Skin is intact, Skin is pink, warm \T\ dry. Musculoskeletal: Capillary refill < 3 seconds, Range of motion: intact in all extremities. 23:42 Reassessment: Patient appears in no apparent distress at this time. Patient and/or rr5 family updated on plan of care and expected duration. Pain level reassessed. Patient states feeling better. Patient states symptoms have improved. Reassessment: pain score 2/10 comfortable now, send to CT scan. 03/12 00:30 Reassessment: Patient appears in no apparent distress at this time. Patient and/or rr5 family updated on plan of care and expected duration. Pain level reassessed. awaiting for report, no complaints made. 02:00 Reassessment: Patient appears in no apparent distress at this time. Patient and/or rr5 family updated on plan of care and expected duration. Pain level reassessed. informed for the plan of transfer and agreed. 02:10 Reassessment: Patient appears in no apparent distress at this time. Patient and/or rr5 family updated on plan of care and expected duration. Pain level reassessed. complaining of burning pain on the urethral kruse site. heidi assess with order and carried out. 02:25 Reassessment: Patient appears in no apparent distress at this time. endorsed to [address] vitally stable. Vital Signs: 03/11 22:35 BP 194 / 131; Pulse 83; Resp 18; Pulse Ox 96% ; Weight 63.5 kg; Height 4 ft. 7 in. rr5 (139.70 cm); Pain 10/10; 22:54 BP 173 / 89; Pulse 76; Resp 17; Temp 98.2(O); Pulse Ox 95% on 2 lpm NC; Pain 5/10; rr5 23:30 BP 169 / 79; Pulse 85; Resp 17; Pulse Ox 99% ; rr5 03/12 01:00 BP 186 / 76; Pulse 75; Resp 17; Pulse Ox 98% ; rr5 02:00 BP 192 / 89; Pulse 69; Resp 16; Pulse Ox 98% ; rr5 03/11 22:35 Body Mass Index 32.54 (63.50 kg, 139.70 cm) rr5 ED Course: 03/11 22:15 Patient arrived in ED. al2 22:16 Neo Shah MD is Private Physician. al2 22:21 Heidi Gandara FNP-C [facility]. snw 22:21 Sha Paiz MD is Attending Physician. snw 22:27 Ross Pastor RN is Primary Nurse. rr5 22:35 Arm band placed on. EKG completed in triage. Results shown to MD. rr5 22:35 Patient has correct armband on for positive identification. Placed in gown. Bed in low rr5 position. Call light in reach. Side rails up X2. potline monitor on. Pulse ox on. NIBP on. 22:35 Inserted saline lock: 20 gauge in left antecubital area, using aseptic technique. Blood rr5 collected. shamar CUELLAR inserted. 22:44 Triage completed. rr5 22:51 XRAY Chest (1 view) In Process Unspecified. EDMS 22:52 X-ray completed. Portable x-ray completed in exam room. Patient tolerated procedure sg4 well. 23:[address] via stretcher. kw1 23:55 CT Stone Protocol In Process Unspecified. EDMS 23:58 CT completed. Patient tolerated procedure well. Patient moved back from CT. kw1 03/12 01:12 Kruse cath inserted, using sterile technique, 16 Fr., by id, balloon inflated, urine rr5 specimen collected. returned clear yellow urine. Patient tolerated well. 02:02 No provider procedures requiring assistance completed. Patient transferred, IV remains rr5 in place. intact. Administered Medications: 03/11 23:15 Drug: Zofran 2 mg Route: IVP; Site: left antecubital; rr5 03/12 02:30 Follow up: Response: No adverse reaction rr5 03/11 23:17 Drug: morphine 2 mg Route: IVP; Site: left antecubital; rr5 03/12 02:30 Follow up: Response: No adverse reaction rr5 02:10 Drug: morphine 2 mg Route: IVP; Site: left antecubital; rr5 02:30 Follow up: Response: No adverse reaction rr5 Outcome: 01:37 ER care complete, transfer ordered by MD. snw 02:02 Transferred by ground EMS to [facility], Transfer form completed. Note: rr5 jose a report given 02:02 Condition: stable 02:02 Instructed on the need for transfer. 02:41 Patient left the ED. rr5 Signatures: Dispatcher [employer] EDMS Heidi Gandara, FIORELLA-C MOTION STUDY TECHNICIAN-Hilary Ocampo1 Cheryl Nicole Susana sg4 Ross Pastor, RN RN rr5 Corrections: (The following items were deleted from the chart) 03/11 22:53 20:35 Arm band placed on rr5 rr5 : 20:35 EKG completed in triage. Results shown to MD. rr5 rr5 22:54 20:35 BP 194 / 131; Pulse 83bpm; Resp 18bpm; Pulse Ox 96%; 63.5 kg; Height 4 ft. 7 in.; rr5 BMI: 32.5; Pain 10/10; rr5 22:56 20:35 Presenting complaint: Significant other states: patient started to have central rr5 chest pain radiating to back around 2000H after dinner. associated with nausea vomiting and burping episodes. pain score of 10/10 rr5 22:56 20:35 Transition of care: patient was not received from another setting of care. rr5 rr5 22:56 20:35 Onset of symptoms was March 11, 2018 at 20:00 rr5 rr5 22:56 20:35 Risk Assessment: Do you want to hurt yourself or someone else? Patient reports no rr5 desire to harm self or others. rr5 22:56 20:35 Initial Sepsis Screen: Does the patient meet any 2 criteria? No. Patient's rr5 initial sepsis screen is negative. Does the patient have a suspected source of infection? No. Patient's initial sepsis screen is negative. rr5 :56 20:35 Care prior to arrival: Medication(s) given: omeprazole and labetalol rr5 rr5 : 20:35 Method Of Arrival: Ambulatory rr5 rr5 20:35 Acuity: BE 3 rr5 rr5
[2018-03-12 01:49] LABS: Urine Blood 2+ (NEG); Urine Glucose TRACE (NEG); Urine Protein 3+ (NEG); Urine Specific Gravity 1.025 (1.005-1.030)
[2018-03-12] MEDS ORDERED: MORPHINE 2 MG/ML SYR ONE (02:15)
[2018-03-12 02:16] LABS: Urine Amorphous Sediment 3+ /HPF (NONE SEEN); Urine Bacteria >50 /HPF (<20); Urine Culture Reflex Order REFLEXED; Urine RBC <5 /HPF (NONE SEEN)
--- NOTE | 2018-03-12 08:24 | RAD REPORT ---
EXAM DESCRIPTION: CT - Stone Protocol - 03/12/2018 7:48 am CLINICAL HISTORY: Abdominal pain. Vomiting COMPARISON: 2016 TECHNIQUE: Computed axial tomography of the abdomen pelvis was obtained without oral or IV contrast. Lack of IV and oral contrast limits evaluation of solid organs, bowel, and vessels. Coronal reformat yao images were obtained and reviewed. Preliminary report generated by [employer] radiologic and reviewe d prior to dictation All CT scans are performed using dose optimization technique as appropriate and may include automated exposure control or mA/KV adjustment according to patient size. FINDINGS: Extrarenal pelves. Moderate dilatation of the right renal pelvis unchanged. Moderate to ma rked dilatation left renal pelvis has increased in caliber since the prior exam. Renal cortical thinn ing bilaterally. A genitourinary calculus is not seen. The ureters are normal caliber The liver, spleen, pancreas and adrenals appear grossly normal There is no evidence of diverticulitis. Large hiatal hernia contains a chronic the gastric volvulus. A large right inguinal hernia contains fat. Small ventral hernia contains fat The appendix is normal. IMPRESSION: Moderate right and [id number] left hydronephrosis with renal cortical thinning. 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 Large hiatal hernia containing a chronic gastric volvulus
--- NOTE | 2018-03-12 08:25 | RAD REPORT ---
EXAM DESCRIPTION: Thony Single View03/11/2018 10:51 pm CLINICAL HISTORY: Chest pain COMPARISON: 2016 FINDINGS: The lungs appear clear of acute infiltrate. The heart is mildly to moderately enlarged. Large hiatal hernia
--- NOTE | 2018-03-12 10:03 | EKG ---
Test Date: 2018-03-11 Test Time: 22:29:32 [employer]: RR MEASUREMENT RESULTS: Intervals: Rate: 84 MI: 158 QRSD: 88 QT: 366 QTc: 432 [place]: P: 25 MI: 158 QRS: 29 T: -4 INTERPRETIVE STATEMENTS: Normal sinus rhythm Normal ECG Compared to ECG 05/28/2015 12:19:33 Sinus bradycardia no longer present Electronically Signed On 03-12-18 09:54:30 POWER PROJECT MANAGER by Brice Martínez
== END 2018-03-12 02:41 | disposition short-term general hospital (02) ==
LOC: ER 22:14
DX: K44.9 Diaphragmatic hernia without obstruction or gangrene (principal); K31.89 Other diseases of stomach and duodenum; N19 Unspecified kidney failure; I10 Essential (primary) hypertension; I25.2 Old myocardial infarction
CPT/HCPCS: 36415; 51702; 71045; 74176; 76377; 80048; 80076; 83735; 83880; 84484; 85025; 85610; 87086; 87088; 93005; 96374; 96375; 99285; J2270 ×2; J2405; 81003; 81015